=== PATIENT | female | born 1945 | race Caucasian/White ===

== ENCOUNTER 2018-05-12 12:47 | Outpatient (CLI) | payer MEDICARE | END 2018-05-12 12:48 | disposition home or self-care (01) | LOC: BICMAMMO 12:47 | PROVIDERS: ATTEND Family Medicine | DX: Z12.31 Encounter for screening mammogram for malignant neoplasm of breast (principal) | CPT/HCPCS: 77063; 77067 ==

== ENCOUNTER 2019-05-13 09:37 | Outpatient (CLI) | payer MEDICARE ==
--- NOTE | 2019-05-13 10:06 | BD ---
DEXA BONE DENSITY SCAN: Date: 05/13/2019 COMPARISON: 05/08/2017. HISTORY: Postmenopausal female undergoing screening for osteoporosis. FINDINGS: Lumbar Spine BMD (g/cm2) L1 0.770 T-Score -2.0 (previous -2.0) L2 0.764 T-Score -2.4 (previous -2.5) L3 0.861 T-Score -2.0 (previous -1.9) L4 0.794 T-Score -2.4 (previous -1.9) L1-L4 0.799 T-Score -2.3 (previous -2.1) Femoral Neck 0.612 T-Score -2.1 (previous -2.2) Total Femur 0.725 T-Score -1.8 (previous -1.5) Bone mineral density within the total proximal femur has decreased by 8.7% when compared to the prior exam. Bone mineral density within the total lumbar spine has decreased by 1.1% when compared to the prior exam. The FRAX-WHO fracture risk assessment tool reports a 10 year fracture risk of 13% for a major osteopo rotic fracture and 3.6% for hip fracture in an untreated patient. IMPRESSION: Lumbar spine and femoral neck osteopenia, correlating with an increased risk for fracture as detailed above. Transcribed Date/Time: 05/13/2019 11:07 AM
--- NOTE | 2019-05-13 15:08 | MMO ---
Bilateral MAMMO Bilat Screen [facility]. CLINICAL HISTORY: Patient is 73 years old and is seen for screening. The patient has no family history of breast cancer. The patient has no personal history of cancer. The patient has a history of right Excisional Biopsy - benign. VIEWS: The views performed were: bilateral craniocaudal with tomosynthesis and bilateral mediolateral oblique with tomosynthesis. FILMS COMPARED: The present examination has been compared to prior imaging studies performed at [facility] on 05/08/2017 and 05/12/2018, and at [facility] on 04/27/2010 and 05/20/2013. MAMMOGRAM FINDINGS: There are scattered fibroglandular densities. Finding 1: There is a post-surgical scar seen in the right breast. There are no suspicious masses, suspicious calcifications, or new areas of architectural distortion. IMPRESSION: THERE IS NO MAMMOGRAPHIC EVIDENCE OF MALIGNANCY. A ROUTINE FOLLOW-UP MAMMOGRAM IN 1 YEAR IS RECOMMENDED. THE RESULTS OF THIS EXAM WERE SENT TO THE PATIENT. ACR BI-RADS Category 2 - Benign finding MAMMOGRAPHY NOTE: 1. A negative mammogram report should not delay a biopsy if a dominant of clinically suspicious mass is present. 2. Approximately 10% to 15% of breast cancers are not detected by mammography. 3. Adenosis and dense breasts may obscure an underlying neoplasm. Reported by: SANTIAGO LOVING MD Electonically Signed: [id number]
== END 2019-05-13 09:38 | disposition home or self-care (01) ==
LOC: BICMAMMO 09:37
PROVIDERS: ATTEND Family Medicine
DX: Z12.31 Encounter for screening mammogram for malignant neoplasm of breast (principal); Z13.820 Encounter for screening for osteoporosis; Z91.89 Other specified personal risk factors, not elsewhere classified; M85.89 Other specified disorders of bone density and structure, multiple sites
CPT/HCPCS: 77063; 77067; 77080

== ENCOUNTER 2021-01-19 10:42 | Outpatient (CLI) | payer MEDICARE | END 2021-01-19 10:43 | disposition home or self-care (01) | LOC: BICMAMMO 10:42 | PROVIDERS: ATTEND Family Medicine | DX: Z12.31 Encounter for screening mammogram for malignant neoplasm of breast (principal); R79.89 Other specified abnormal findings of blood chemistry; Z91.89 Other specified personal risk factors, not elsewhere classified | CPT/HCPCS: 76705; 77063; 77067 ==

== ENCOUNTER 2021-01-31 08:37 | Outpatient (CLI) | payer MEDICARE | END 2021-01-31 08:38 | disposition home or self-care (01) | LOC: BICRAD 08:37 | PROVIDERS: ATTEND Family Medicine | DX: J18.9 Pneumonia, unspecified organism (principal) | CPT/HCPCS: 36415; 71046; 80053; 82150; 82728; 83540; 83550; 83690; 85025; 86664; 86665 ==

== ENCOUNTER 2021-02-03 10:52 | Outpatient (CLI) | payer MEDICARE ==
[~2021-02-03 10:52] MED LIST: Iopamidol 370 76% 100 ML VIAL ONE
== END 2021-02-03 10:53 | disposition home or self-care (01) ==
LOC: BICCT 10:52
PROVIDERS: ATTEND Family Medicine
DX: K76.89 Other specified diseases of liver (principal); K44.9 Diaphragmatic hernia without obstruction or gangrene
CPT/HCPCS: 74170; Q9967

== ENCOUNTER 2021-02-06 09:33 | Outpatient (CLI) | payer MEDICARE | END 2021-02-06 09:34 | disposition home or self-care (01) | LOC: BICRAD 09:33 | PROVIDERS: ATTEND Family Medicine | DX: J18.9 Pneumonia, unspecified organism (principal) | CPT/HCPCS: 71046 ==

== ENCOUNTER 2021-02-20 12:15 | Inpatient (IN) | payer MEDICARE ==
[~2021-02-20 12:15] MED LIST changes: -Iopamidol 370 76% 100 ML VIAL ONE; +Iopamidol-370 76% 500 ML 1 ML ONE
[2021-02-20 12:42] LABS: Hemoglobin 6.4 g/dL (12.0-16.0); Mean Corpuscular HGB CONC 33.1 g/dL (32.0-36.0); Mean Corpuscular Hemoglobin 31.4 pg (27.0-31.0); Mean Corpuscular Volume 94.7 fL (78.0-98.0); Mean Platelet Volume 9.3 fL (7.4-10.4); Platelet Count 231 thou/uL (130-400); RBC Distribution Width 18.3 % (11.5-14.5); Red Blood Cell (RBC) Count 2.04 mill/uL (4.20-5.40)
[2021-02-20 13:00] LABS: Bilirubin Negative (Negative); Blood, Urine Negative (Negative); Clarity Turbid (Clear); Glucose, Urine (Dipstick) 70 mg/dL (Negative); Ketone, Urine Negative (Negative); Leukocyte Negative Leu/uL (Negative); Nitrite Negative (Negative); Protein, Urine (Dipstick) 20 mg/dL (Neg-Trace); Specific Gravity, Urine 1.013 (1.002-1.036); Urobilinogen Normal mg/dL (Less than 2)
[2021-02-20] MEDS ORDERED: cefTRIAXone\\ROCEPHIN 2 GM VIAL ONE (13:02)
[2021-02-20 13:05] LABS: ALT (SGPT) 44 U/L (8-55); AST (SGOT) 81 U/L (5-34); Albumin 2.7 g/dL (3.4-4.8); Alkaline Phosphatase 331 U/L (40-110); Anion Gap 13 mmol/L (10-20); BUN (Urea Nitrogen) 10 mg/dL (9.8-20.1); Bilirubin, Total 0.8 mg/dL (0.2-1.2); Calc. Creatinine Clearance 0 mL/min (70-130); Calcium 8.5 mg/dL (7.8-10.44); Carbon Dioxide 23 mmol/L (23-31); Chloride 104 mmol/L (98-107); Globulin 2.4 g/dL (2.4-3.5); Glucose 175 mg/dL (83-110); Potassium 3.3 mmol/L (3.5-5.1); Protein, Total 5.1 g/dL (5.8-8.1); Sodium 137 mmol/L (136-145)
[2021-02-20 13:10] LABS: Anisocytosis SLIGHT = 6-15 cells (100X) (0-5/hpf); Band 16 % (5-11); Lymphocytes 11 % (21-51); MDiff Complete? YES; Monocytes 15 % (0-10); Neutrophil 58 % (42-75); Platelet Morphology Comment Appears Adequate; Polychromasia MODERATE = 3-4 cells (100X) (0-2/hpf)
[2021-02-20] MEDS ORDERED: Vancomycin 1 GM/200 ML BAG ONE (14:09)
[2021-02-20 14:14] LABS: SARS-CoV-2 NAA Rapid Test Not Detected (NotDetected)
[2021-02-20] MEDS ORDERED: Ibuprofen 800 MG TAB ONE (14:31)
[2021-02-20] MEDS ORDERED: Ondansetron ODT 4 MG TAB PO PRN (14:44)
[2021-02-20] MEDS ORDERED: Lactated Ringer's 1,000 ML IV SCH (15:15)
[2021-02-20 15:36] LABS: Lactic Acid 1.2 mmol/L (0.5-2.2)
[2021-02-20 15:44] LABS: Troponin I 0.027 ng/mL (< 0.028)
[2021-02-20] MEDS ORDERED: Cefepime 2 GM in Sodium Chloride 0.9% 100 ML IVPB SCH (17:00)
[2021-02-20] MEDS: Cefepime 2 GM in Sodium Chloride 0.9% 100 ML IVPB SCH (18:33)
[2021-02-20 19:01] LABS: Troponin I 0.016 ng/mL (< 0.028)
[2021-02-20] MEDS: Acetaminophen 325 MG TAB PO PRN (21:58)
[2021-02-21] MEDS: Cefepime 2 GM in Sodium Chloride 0.9% 100 ML IVPB SCH ×3 (00:27→16:33)
[2021-02-21 00:55] LABS: Hemoglobin 8.3 g/dL (12.0-16.0)
[2021-02-21 04:45] LABS: Reticulocyte Count 3.2 % (0.5-1.5)
[2021-02-21 05:03] LABS: Hemoglobin 9.2 g/dL (12.0-16.0); Lymphocytes 8 % (21-51); MDiff Complete? YES; Mean Corpuscular HGB CONC 32.6 g/dL (32.0-36.0); Mean Corpuscular Hemoglobin 29.7 pg (27.0-31.0); Mean Corpuscular Volume 91.1 fL (78.0-98.0); Mean Platelet Volume 9.5 fL (7.4-10.4); Metamyelocyte 1 % (0-0); Monocytes 9 % (0-10); Neutrophil 81 % (42-75); Platelet Count 181 thou/uL (130-400); Platelet Morphology Comment Appears Adequate; RBC Distribution Width 19.1 % (11.5-14.5); White Blood Cell (WBC) Count 7.5 thou/uL (4.8-10.8)
[2021-02-21 05:16] LABS: ALT (SGPT) 42 U/L (8-55); AST (SGOT) 79 U/L (5-34); Albumin 2.8 g/dL (3.4-4.8); Alkaline Phosphatase 328 U/L (40-110); Anion Gap 15 mmol/L (10-20); BUN (Urea Nitrogen) 9 mg/dL (9.8-20.1); Bilirubin, Total 0.9 mg/dL (0.2-1.2); Calc. Creatinine Clearance 87 mL/min (70-130); Calcium 8.5 mg/dL (7.8-10.44); Carbon Dioxide 19 mmol/L (23-31); Chloride 106 mmol/L (98-107); Gamma GT (GGT) 201 U/L (9-36); Globulin 2.4 g/dL (2.4-3.5); Glucose 103 mg/dL (83-110); Magnesium 1.8 mg/dL (1.6-2.6); Phosphorus 3.3 mg/dL (2.3-4.7); Potassium 3.8 mmol/L (3.5-5.1); Protein, Total 5.2 g/dL (5.8-8.1); Sodium 136 mmol/L (136-145)
[2021-02-21] MEDS: Acetaminophen 325 MG TAB PO PRN (06:09)
[2021-02-21] MEDS ORDERED: Ibuprofen 200 MG TAB PO PRN (08:20)
[2021-02-21] MEDS ORDERED: Pantoprazole 40 MG VIAL IVP SCH ×2 (09:00)
[2021-02-21] MEDS: Acetaminophen 325 MG TAB PO SCH ×4 (09:29→20:39)
[2021-02-21 11:07] LABS: Phosphorus 2.8 mg/dL (2.3-4.7); Uric Acid 3.2 mg/dL (2.6-6.0)
[2021-02-21] MEDS ORDERED: Lidocaine 2 gm/D5W 500 ml 0 ML ONE (11:49)
[2021-02-21] MEDS ORDERED: Lidocaine 1% (PF) 30 ML VIAL ONE (11:50)
[2021-02-21] MEDS ORDERED: Ibuprofen 200 MG TAB PO SCH (12:00)
[2021-02-21 13:02] LABS: Reticulocyte Count 3.4 % (0.5-1.5)
[2021-02-21] MEDS: Vancomycin HCl 1.25 GM in Sodium Chloride 0.9% 250 ML 250 ML IVPB SCH (14:04)
[2021-02-21] MEDS: diphenhydrAMINE 25 MG CAP PO PRN (17:16)
[2021-02-21] MEDS: diphenhydrAMINE 25 MG CAP PO SCH (20:38)
[2021-02-21] MEDS: Naproxen 500 MG TAB PO SCH (20:38)
[2021-02-22] MEDS: Cefepime 2 GM in Sodium Chloride 0.9% 100 ML IVPB SCH ×2 (01:04→08:53)
[2021-02-22] MEDS: Acetaminophen 325 MG TAB PO SCH ×6 (01:04→20:34)
[2021-02-22 07:21] LABS: Hemoglobin 9.4 g/dL (12.0-16.0); Mean Corpuscular HGB CONC 32.9 g/dL (32.0-36.0); Mean Corpuscular Hemoglobin 30.2 pg (27.0-31.0); Mean Corpuscular Volume 91.8 fL (78.0-98.0); Mean Platelet Volume 9.6 fL (7.4-10.4); Platelet Count 139 thou/uL (130-400); RBC Distribution Width 19.5 % (11.5-14.5); White Blood Cell (WBC) Count 5.1 thou/uL (4.8-10.8)
[2021-02-22 07:27] LABS: ALT (SGPT) 48 U/L (8-55); AST (SGOT) 89 U/L (5-34); Albumin 2.7 g/dL (3.4-4.8); Alkaline Phosphatase 356 U/L (40-110); Anion Gap 11 mmol/L (10-20); BUN (Urea Nitrogen) 12 mg/dL (9.8-20.1); Bilirubin, Total 1.2 mg/dL (0.2-1.2); Calc. Creatinine Clearance 85 mL/min (70-130); Calcium 9.7 mg/dL (7.8-10.44); Carbon Dioxide 25 mmol/L (23-31); Chloride 107 mmol/L (98-107); Globulin 2.6 g/dL (2.4-3.5); Glucose 104 mg/dL (83-110); Potassium 3.2 mmol/L (3.5-5.1); Protein, Total 5.3 g/dL (5.8-8.1); Sodium 140 mmol/L (136-145)
[2021-02-22 07:49] LABS: Band 29 % (5-11); Eosinophils 2 % (0-10); Lymphocytes 2 % (21-51); MDiff Complete? YES; Monocytes 13 % (0-10); Neutrophil 52 % (42-75); Platelet Morphology Comment Appears Adequate; Polychromasia SLIGHT = 2-3 cells (100X) (0-2/hpf); Reactive Lymphocytes 2 % (0-10)
[2021-02-22] MEDS: Naproxen 500 MG TAB PO SCH ×2 (08:54→20:33)
[2021-02-22] MEDS: Potassium Chloride 20 MEQ in Premix Bag 1 BAG IVPB SCH ×2 (09:40→12:11)
[2021-02-22] MEDS ORDERED: Furosemide 20 MG/2 ML VIAL SLOW IVP SCH (11:30)
[2021-02-22 13:25] LABS: Vancomycin, Trough 4.9 ug/mL
[2021-02-22] MEDS: Vancomycin HCl 1.25 GM in Sodium Chloride 0.9% 250 ML 250 ML IVPB SCH (14:37)
[2021-02-22] MEDS ORDERED: Vancomycin HCl 1.25 GM in Sodium Chloride 0.9% 250 ML 250 ML IVPB SCH (15:00)
[2021-02-22] MEDS ORDERED: VANCOMYCIN 1.25 GM/250 ML BAG 1.25 GM in Premix Bag 1 BAG IVPB SCH (15:00)
[2021-02-22] MEDS ORDERED: cefTRIAXone\\ROCEPHIN 1 GM in Sodium Chloride 0.9% 100 ML IVPB SCH (16:15)
[2021-02-22] MEDS: diphenhydrAMINE 25 MG CAP PO SCH (20:34)
[2021-02-22] MEDS ORDERED: Furosemide 40 MG/4 ML VIAL SLOW IVP SCH (22:30)
[2021-02-23] MEDS: Acetaminophen 325 MG TAB PO SCH ×6 (02:02→20:45)
[2021-02-23] MEDS ORDERED: CEFAZOLIN 1 GM VIAL ONE (07:29)
[2021-02-23] MEDS ORDERED: Sodium Chloride 0.9% 100 ML ONE (07:29)
[2021-02-23] MEDS ORDERED: Bupivacaine PF 0.5% 30 ML VIAL ONE (08:17)
[2021-02-23] MEDS ORDERED: Lidocaine 1% w/Epinephrine 1:100K 20 ML VIAL ONE (08:17)
[2021-02-23] MEDS ORDERED: Fentanyl 100 MCG/2 ML VIAL ONE (08:25)
[2021-02-23] MEDS ORDERED: Midazolam HCl 2 mg/2 ml Vial ONE (08:25)
[2021-02-23] MEDS ORDERED: Ibuprofen 600 MG TAB PO PRN (08:42)
[2021-02-23] MEDS ORDERED: traMADol HCl 50 MG TAB PO PRN (08:42)
[2021-02-23] MEDS ORDERED: Lidocaine 1% PF 5 ML VIAL ONE (08:54)
[2021-02-23] MEDS ORDERED: PROPOFOL 200 MG/20 ML VIAL ONE (08:55)
[2021-02-23] MEDS: Naproxen 500 MG TAB PO SCH ×2 (12:42→21:42)
[2021-02-23] MEDS: Allopurinol 300 MG TAB PO SCH (12:42)
[2021-02-23 13:26] LABS: Anisocytosis SLIGHT = 6-15 cells (100X) (0-5/hpf); Band 49 % (5-11); Eosinophils 1 % (0-10); Hemoglobin 8.2 g/dL (12.0-16.0); Hypochromia SLIGHT = 6-15 cells (100X) (0-5/hpf); Large Platelets SLIGHT; Lymphocytes 2 % (21-51); MDiff Complete? YES; Mean Corpuscular Volume 90.9 fL (78.0-98.0); Mean Platelet Volume 10.7 fL (7.4-10.4); Metamyelocyte 8 % (0-0); Monocytes 4 % (0-10); Myelocyte 2 % (0-0); Neutrophil 31 % (42-75); Platelet Count 115 thou/uL (130-400); Platelet Morphology Comment Appears Adequate; Poikilocytosis SLIGHT = 6-15 cells (100X) (0-5/hpf); RBC Distribution Width 19.3 % (11.5-14.5); Reactive Lymphocytes 3 % (0-10); Red Blood Cell (RBC) Count 2.75 mill/uL (4.20-5.40); White Blood Cell (WBC) Count 4.9 thou/uL (4.8-10.8)
[2021-02-23] MEDS: diphenhydrAMINE 25 MG CAP PO SCH (20:45)
[2021-02-23] MEDS ORDERED: Furosemide 40 MG/4 ML VIAL SLOW IVP SCH (21:00)
[2021-02-24] MEDS: Acetaminophen 325 MG TAB PO SCH ×6 (01:45→21:15)
[2021-02-24] MEDS ORDERED: Furosemide 20 MG/2 ML VIAL SLOW IVP SCH (06:00)
[2021-02-24 09:03] LABS: Band 15 % (5-11); Eosinophils 1 % (0-10); Hemoglobin 8.1 g/dL (12.0-16.0); Hypochromia SLIGHT = 6-15 cells (100X) (0-5/hpf); Lymphocytes 3 % (21-51); MDiff Complete? YES; Mean Corpuscular HGB CONC 31.6 g/dL (32.0-36.0); Mean Corpuscular Hemoglobin 28.9 pg (27.0-31.0); Mean Corpuscular Volume 91.8 fL (78.0-98.0); Mean Platelet Volume 9.9 fL (7.4-10.4); Monocytes 14 % (0-10); Neutrophil 66 % (42-75); Platelet Count 134 thou/uL (130-400); Platelet Morphology Comment Appears Adequate; RBC Distribution Width 19.4 % (11.5-14.5); Reactive Lymphocytes 1 % (0-10); Red Blood Cell (RBC) Count 2.81 mill/uL (4.20-5.40); White Blood Cell (WBC) Count 4.3 thou/uL (4.8-10.8)
[2021-02-24] MEDS: Naproxen 500 MG TAB PO SCH ×2 (09:57→21:15)
[2021-02-24] MEDS: Allopurinol 300 MG TAB PO SCH (09:57)
[2021-02-24] MEDS ORDERED: Potassium Chloride 20 MEQ TAB PO SCH (11:15)
[2021-02-24 11:42] LABS: Anion Gap 9 mmol/L (10-20); BUN (Urea Nitrogen) 23 mg/dL (9.8-20.1); Calc. Creatinine Clearance 81 mL/min (70-130); Calcium 10.9 mg/dL (7.8-10.44); Carbon Dioxide 31 mmol/L (23-31); Chloride 103 mmol/L (98-107); Glucose 155 mg/dL (83-110); Potassium 3.6 mmol/L (3.5-5.1); Sodium 139 mmol/L (136-145)
[2021-02-24] MEDS: diphenhydrAMINE 25 MG CAP PO SCH (21:15)
[2021-02-24] MEDS: Calcium Carbonate 500 MG ChewTAB PO PRN (22:57)
[2021-02-25] MEDS: Acetaminophen 325 MG TAB PO SCH ×6 (00:16→20:32)
[2021-02-25 06:39] LABS: Anion Gap 10 mmol/L (10-20); BUN (Urea Nitrogen) 23 mg/dL (9.8-20.1); Calc. Creatinine Clearance 80 mL/min (70-130); Carbon Dioxide 31 mmol/L (23-31); Chloride 103 mmol/L (98-107); Glucose 103 mg/dL (83-110); Sodium 140 mmol/L (136-145)
[2021-02-25 06:51] LABS: Calcium 12.1 mg/dL (7.8-10.44)
[2021-02-25 08:25] LABS: Hemoglobin 7.4 g/dL (12.0-16.0); Mean Corpuscular HGB CONC 32.9 g/dL (32.0-36.0); Mean Corpuscular Hemoglobin 30.1 pg (27.0-31.0); Mean Corpuscular Volume 91.3 fL (78.0-98.0); Mean Platelet Volume 9.8 fL (7.4-10.4); Platelet Count 123 thou/uL (130-400); RBC Distribution Width 19.2 % (11.5-14.5); Red Blood Cell (RBC) Count 2.44 mill/uL (4.20-5.40); White Blood Cell (WBC) Count 5.2 thou/uL (4.8-10.8)
[2021-02-25] MEDS: Allopurinol 300 MG TAB PO SCH (08:41)
[2021-02-25] MEDS: Naproxen 500 MG TAB PO SCH ×2 (08:41→20:32)
[2021-02-25 08:43] LABS: Band 17 % (5-11); Eosinophils 1 % (0-10); Hypochromia SLIGHT = 6-15 cells (100X) (0-5/hpf); Lymphocytes 7 % (21-51); MDiff Complete? YES; Monocytes 5 % (0-10); Neutrophil 70 % (42-75); Platelet Morphology Comment Appears Adequate
[2021-02-25] MEDS: diphenhydrAMINE 25 MG CAP PO SCH (20:32)
[2021-02-25] MEDS: Calcium Carbonate 500 MG ChewTAB PO PRN (20:45)
[2021-02-26] MEDS: Acetaminophen 325 MG TAB PO SCH ×6 (00:02→20:31)
[2021-02-26] MEDS: Allopurinol 300 MG TAB PO SCH (08:43)
[2021-02-26] MEDS: Naproxen 500 MG TAB PO SCH ×2 (08:43→20:31)
[2021-02-26 17:45] LABS: Hemoglobin 7.8 g/dL (12.0-16.0)
[2021-02-26] MEDS: diphenhydrAMINE 25 MG CAP PO SCH (20:34)
[2021-02-27 00:08] LABS: Anion Gap 11 mmol/L (10-20); BUN (Urea Nitrogen) 20 mg/dL (9.8-20.1); Calc. Creatinine Clearance 76 mL/min (70-130); Carbon Dioxide 31 mmol/L (23-31); Chloride 102 mmol/L (98-107); Glucose 102 mg/dL (83-110); Potassium 4.5 mmol/L (3.5-5.1); Sodium 139 mmol/L (136-145)
[2021-02-27 00:11] LABS: Calcium 12.7 mg/dL (7.8-10.44)
[2021-02-27] MEDS ORDERED: Sodium Chloride 0.9% 500 ML IV SCH ×2 (00:45→04:00)
[2021-02-27] MEDS: Acetaminophen 325 MG TAB PO SCH ×6 (01:11→22:14)
[2021-02-27] MEDS: diphenhydrAMINE 25 MG CAP PO PRN (03:44)
[2021-02-27 04:21] LABS: Anion Gap 10 mmol/L (10-20); BUN (Urea Nitrogen) 18 mg/dL (9.8-20.1); Calc. Creatinine Clearance 80 mL/min (70-130); Carbon Dioxide 31 mmol/L (23-31); Chloride 104 mmol/L (98-107); Glucose 100 mg/dL (83-110); Potassium 4.5 mmol/L (3.5-5.1); Sodium 140 mmol/L (136-145)
[2021-02-27 04:23] LABS: Calcium 12.4 mg/dL (7.8-10.44); Critical Call Chemistry DECREASING
[2021-02-27 05:47] LABS: Hemoglobin 7.6 g/dL (12.0-16.0); Mean Corpuscular HGB CONC 32.7 g/dL (32.0-36.0); Mean Corpuscular Hemoglobin 29.9 pg (27.0-31.0); Mean Corpuscular Volume 91.5 fL (78.0-98.0); Mean Platelet Volume 9.6 fL (7.4-10.4); Platelet Count 126 thou/uL (130-400); RBC Distribution Width 17.9 % (11.5-14.5); Red Blood Cell (RBC) Count 2.54 mill/uL (4.20-5.40); White Blood Cell (WBC) Count 5.6 thou/uL (4.8-10.8)
[2021-02-27 06:14] LABS: Band 20 % (5-11); Eosinophils 3 % (0-10); Lymphocytes 2 % (21-51); MDiff Complete? YES; Monocytes 12 % (0-10); Myelocyte 2 % (0-0); Neutrophil 60 % (42-75); Reactive Lymphocytes 1 % (0-10)
[2021-02-27] MEDS ORDERED: Lactated Ringer's 250 ML IV ONE (07:49)
[2021-02-27] MEDS ORDERED: Lactated Ringer's 1,000 ML IV SCH ×2 (08:00→09:10)
[2021-02-27] MEDS: Allopurinol 300 MG TAB PO SCH (08:40)
[2021-02-27] MEDS: Naproxen 500 MG TAB PO SCH ×2 (08:50→21:28)
[2021-02-27 11:50] LABS: Bacteria/HPF None Seen HPF (None Seen); Bilirubin Negative (Negative); Blood, Urine Negative (Negative); Clarity Turbid (Clear); Glucose, Urine (Dipstick) Normal (Negative); Ketone, Urine Negative (Negative); Leukocyte Negative Leu/uL (Negative); Nitrite Negative (Negative); Protein, Urine (Dipstick) 20 mg/dL (Neg-Trace); RBC/HPF 0-3 HPF (0-3); Specific Gravity, Urine 1.017 (1.002-1.036); Squamous Epithelial 0-3 HPF (0-3); Urobilinogen Normal mg/dL (Less than 2); WBC/HPF 0-3 HPF (0-3); pH, Urine 6.5 (5.0-9.0)
[2021-02-27 11:51] LABS: Urine Culture Reflex No No
[2021-02-27] MEDS: Enoxaparin Sodium 40 MG/0.4 ML SYRINGE SC SCH (12:08)
[2021-02-27] MEDS ORDERED: Calcitonin,Salmon,Synthetic 200 UNITS/ML MDV SC SCH (14:15)
[2021-02-27] MEDS ORDERED: Furosemide 20 MG/2 ML VIAL SLOW IVP SCH ×2 (14:30→18:00)
[2021-02-27] MEDS ORDERED: Zoledronic Acid 4 MG in Sodium Chloride 0.9% 100 ML IVPB SCH (14:30)
[2021-02-27] MEDS: Calcitonin,Salmon,Synthetic 200 UNITS/ML MDV SC SCH (17:45)
[2021-02-27] MEDS: Lactated Ringer's 1,000 ML IV SCH (17:46)
[2021-02-27] MEDS: Ondansetron PF 4 MG/2 ML Vial IVP PRN (20:18)
[2021-02-27] MEDS: diphenhydrAMINE 25 MG CAP PO SCH (22:14)
[2021-02-27 23:48] LABS: ALT (SGPT) 72 U/L (8-55); AST (SGOT) 128 U/L (5-34); Albumin 2.3 g/dL (3.4-4.8); Alkaline Phosphatase 574 U/L (40-110); BUN (Urea Nitrogen) 15 mg/dL (9.8-20.1); Bilirubin, Total 1.4 mg/dL (0.2-1.2); Calc. Creatinine Clearance 82 mL/min (70-130); Calcium 11.9 mg/dL (7.8-10.44); Carbon Dioxide 32 mmol/L (23-31); Globulin 2.4 g/dL (2.4-3.5); Glucose 116 mg/dL (83-110); Protein, Total 4.7 g/dL (5.8-8.1)
[2021-02-28 00:57] LABS: Chloride 103 mmol/L (98-107); Potassium 4.4 mmol/L (3.5-5.1); Sodium 141 mmol/L (136-145)
[2021-02-28 01:46] LABS: Anion Gap 10 mmol/L (10-20)
[2021-02-28] MEDS: Acetaminophen 325 MG TAB PO SCH ×4 (03:31→17:01)
[2021-02-28] MEDS: Calcitonin,Salmon,Synthetic 200 UNITS/ML MDV SC SCH ×2 (03:32→16:07)
[2021-02-28 05:05] LABS: Band 31 % (5-11); Hemoglobin 7.4 g/dL (12.0-16.0); Lymphocytes 5 % (21-51); MDiff Complete? YES; Mean Corpuscular HGB CONC 32.5 g/dL (32.0-36.0); Mean Corpuscular Hemoglobin 29.9 pg (27.0-31.0); Mean Corpuscular Volume 92.1 fL (78.0-98.0); Mean Platelet Volume 9.9 fL (7.4-10.4); Monocytes 13 % (0-10); Neutrophil 51 % (42-75); Platelet Count 136 thou/uL (130-400); RBC Distribution Width 18.2 % (11.5-14.5); Red Blood Cell (RBC) Count 2.46 mill/uL (4.20-5.40); White Blood Cell (WBC) Count 6.4 thou/uL (4.8-10.8)
[2021-02-28 05:09] LABS: ALT (SGPT) 69 U/L (8-55); AST (SGOT) 128 U/L (5-34); Albumin 2.3 g/dL (3.4-4.8); Alkaline Phosphatase 527 U/L (40-110); Anion Gap 11 mmol/L (10-20); BUN (Urea Nitrogen) 16 mg/dL (9.8-20.1); Bilirubin, Total 1.3 mg/dL (0.2-1.2); Calc. Creatinine Clearance 81 mL/min (70-130); Calcium 11.5 mg/dL (7.8-10.44); Carbon Dioxide 32 mmol/L (23-31); Chloride 101 mmol/L (98-107); Globulin 2.2 g/dL (2.4-3.5); Glucose 106 mg/dL (83-110); Potassium 4.3 mmol/L (3.5-5.1); Protein, Total 4.5 g/dL (5.8-8.1); Sodium 140 mmol/L (136-145)
[2021-02-28] MEDS: Lactated Ringer's 1,000 ML IV SCH ×2 (06:29→17:26)
[2021-02-28] MEDS ORDERED: Iopamidol 370 76% 100 ML VIAL ONE (08:53)
[2021-02-28] MEDS: Naproxen 500 MG TAB PO SCH ×2 (09:00→20:55)
[2021-02-28] MEDS: Allopurinol 300 MG TAB PO SCH (09:03)
[2021-02-28] MEDS: Enoxaparin Sodium 40 MG/0.4 ML SYRINGE SC SCH (09:05)
[2021-02-28] MEDS ORDERED: Sodium Chloride 0.9% 1,000 ML IV SCH (09:30)
[2021-02-28] MEDS ORDERED: Furosemide 20 MG/2 ML VIAL SLOW IVP SCH (12:00)
[2021-02-28] MEDS ORDERED: Methotrexate Sodium/PF 12.5 MG in Sodium Chloride 0.9% 10 ML IV SCH (15:45)
[2021-02-28] MEDS ORDERED: Furosemide 40 MG/4 ML VIAL ONE (16:14)
[2021-02-28 16:32] LABS: Actual Bicarbonate (HCO3a) 30.7 mEq/L (22-28); Base Excess (BEa) 6.2 mEq/L (-2.0 to +3.0); CO2 Tension 44.9 mmHg (35.0-45.0); Carboxyhemoglobin (COHb) 1.3 gm% (0.0-3.0); Hemoglobin (Hb) 7.4 g/dL (12.0-16.0); pH, Arterial 7.45 (7.35-7.45)
[2021-02-28 16:33] LABS: Potassium - ABG Lab 4.38 mmol/L (3.70-5.30)
[2021-02-28 16:34] LABS: ALV-art Gradient 563.875 mmHg (0-20); Analyzer IN Cardio OR; Puncture Site RRA
[2021-02-28] MEDS ORDERED: Acetaminophen 650 MG Suppository PR PRN (16:55)
[2021-02-28] MEDS: Dexamethasone Sod Phosphate 4 MG in Sodium Chloride 0.9% 50 ML IVPB SCH ×2 (17:11→23:48)
[2021-02-28] MEDS ORDERED: Lactated Ringer's 500 ML IV SCH (17:15)
[2021-02-28] MEDS ORDERED: Sodium Chloride 0.9% 500 ML IV SCH (17:30)
[2021-02-28 18:19] LABS: Fluid, Triglycerides 29 mg/dL (Not Available); Pleural Fluid, Amylase Less than 30 U/L (Not Available); Pleural Fluid, Glucose 89 mg/dL; Pleural Fluid, LDH 438 U/L (Not Available); Pleural Fluid, Protein 1.7 g/dL
[2021-02-28 18:46] LABS: RBC Count-Automated (BF) 352 /cu.mm; WBC/Nucleated-Auto (BF) 41 uL
[2021-02-28 19:33] LABS: Body Fluid Source Thoracentesis Fluid; Clarity Hazy (Clear); Tube # EDTA
[2021-02-28 19:34] LABS: BF Color Yellow
[2021-02-28 19:36] LABS: BF Segmented Neutrophils 2 %; Cell Count Non Hematic 57 %; Lymphocytes 39 %
[2021-02-28] MEDS: diphenhydrAMINE 25 MG CAP PO SCH (20:54)
[2021-02-28] MEDS: MEROPENEM 1 GM/50 ML 1 GM in Premix Bag 1 BAG IVPB SCH (22:11)
[2021-02-28] MEDS ORDERED: Albumin 5% 0 ML ONE (22:33)
[2021-02-28] MEDS ORDERED: Albumin 25% 25 GM/100 ML BOT IVPB SCH (23:00)
[2021-02-28] MEDS ORDERED: Norepinephrine 8 MG/0.9% NS 250 ML ONE (23:06)
[2021-02-28] MEDS: Norepinephrine 8 MG/0.9% NS 250 ML IVPB SCH (23:20)
[2021-03-01] MEDS: Lactated Ringer's 1,000 ML IV SCH (03:25)
[2021-03-01] MEDS: Calcitonin,Salmon,Synthetic 200 UNITS/ML MDV SC SCH (03:26)
[2021-03-01] MEDS: Dexamethasone Sod Phosphate 4 MG in Sodium Chloride 0.9% 50 ML IVPB SCH ×4 (05:10→23:40)
[2021-03-01] MEDS: MEROPENEM 1 GM/50 ML 1 GM in Premix Bag 1 BAG IVPB SCH ×3 (05:58→21:16)
[2021-03-01 07:02] LABS: Hemoglobin 6.5 g/dL (12.0-16.0); Mean Corpuscular HGB CONC 31.1 g/dL (32.0-36.0); Mean Corpuscular Hemoglobin 28.7 pg (27.0-31.0); Mean Corpuscular Volume 92.4 fL (78.0-98.0); Red Blood Cell (RBC) Count 2.27 mill/uL (4.20-5.40); White Blood Cell (WBC) Count 13.9 thou/uL (4.8-10.8)
[2021-03-01 07:03] LABS: Mean Platelet Volume 10.4 fL (7.4-10.4); Platelet Count 169 thou/uL (130-400); RBC Distribution Width 18.6 % (11.5-14.5)
[2021-03-01 08:01] LABS: ALT (SGPT) 62 U/L (8-55); AST (SGOT) 129 U/L (5-34); Albumin 2.5 g/dL (3.4-4.8); Alkaline Phosphatase 421 U/L (40-110); Anion Gap 13 mmol/L (10-20); BUN (Urea Nitrogen) 24 mg/dL (9.8-20.1); Bilirubin, Total 1.3 mg/dL (0.2-1.2); Calc. Creatinine Clearance 74 mL/min (70-130); Calcium 10.2 mg/dL (7.8-10.44); Carbon Dioxide 29 mmol/L (23-31); Chloride 104 mmol/L (98-107); Globulin 1.9 g/dL (2.4-3.5); Glucose 142 mg/dL (83-110); Potassium 4.7 mmol/L (3.5-5.1); Protein, Total 4.4 g/dL (5.8-8.1); Sodium 141 mmol/L (136-145)
[2021-03-01 08:10] LABS: Band 41 % (5-11); Lymphocytes 6 % (21-51); MDiff Complete? YES; Monocytes 3 % (0-10); Myelocyte 1 % (0-0); Neutrophil 48 % (42-75); Platelet Morphology Comment Appears Adequate; Polychromasia SLIGHT = 2-3 cells (100X) (0-2/hpf); Reactive Lymphocytes 1 % (0-10)
[2021-03-01] MEDS ORDERED: Albumin 25% 25 GM/100 ML BOT IVPB SCH (08:35)
[2021-03-01] MEDS ORDERED: diphenhydrAMINE 25 MG in Sodium Chloride 0.9% 50 ML IVPB PRN (08:44)
[2021-03-01] MEDS ORDERED: PALONOSETRON HCL 0.05 MG/ML 5 ML VIAL IVP SCH (08:45)
[2021-03-01] MEDS ORDERED: predniSONE 50 MG TAB PO SCH (09:00)
[2021-03-01] MEDS ORDERED: Cyclophosphamide 1 GM in Sodium Chloride 0.9% 250 ML 250 ML IVPB SCH (09:00)
[2021-03-01] MEDS ORDERED: SODIUM CHLORIDE 0.9% IVPB SCH (09:00)
[2021-03-01] MEDS ORDERED: vinCRIStine Sulfate 2 MG in Sodium Chloride 0.9% 50 ML IVPB SCH (09:00)
[2021-03-01] MEDS ORDERED: DOXORUBICIN IVPB SCH (09:00)
[2021-03-01 09:39] LABS: Phosphorus 2.9 mg/dL (2.3-4.7); Uric Acid 3.7 mg/dL (2.6-6.0)
[2021-03-01] MEDS: Sodium Chloride 0.9% 1,000 ML IV SCH (10:07)
[2021-03-01] MEDS: Allopurinol 300 MG TAB PO SCH (10:59)
[2021-03-01] MEDS: Enoxaparin Sodium 40 MG/0.4 ML SYRINGE SC SCH (10:59)
[2021-03-01] MEDS: Naproxen 500 MG TAB PO SCH ×2 (12:12→21:16)
[2021-03-01] MEDS: Norepinephrine 8 MG/0.9% NS 250 ML IVPB SCH (15:31)
[2021-03-01] MEDS: diphenhydrAMINE 25 MG CAP PO SCH (21:16)
[2021-03-01] MEDS: Dexamethasone Sod Phosphate 20 MG in Sodium Chloride 0.9% 50 ML IVPB SCH (23:31)
[2021-03-02] MEDS: Sodium Chloride 0.9% 1,000 ML IV SCH ×3 (03:32→15:59)
[2021-03-02] MEDS: Dexamethasone Sod Phosphate 20 MG in Sodium Chloride 0.9% 50 ML IVPB SCH (04:36)
[2021-03-02 04:44] LABS: ALT (SGPT) 54 U/L (8-55); AST (SGOT) 102 U/L (5-34); Albumin 2.5 g/dL (3.4-4.8); Alkaline Phosphatase 364 U/L (40-110); Anion Gap 12 mmol/L (10-20); BUN (Urea Nitrogen) 28 mg/dL (9.8-20.1); Bilirubin, Total 1.2 mg/dL (0.2-1.2); Calc. Creatinine Clearance 80 mL/min (70-130); Calcium 9.2 mg/dL (7.8-10.44); Carbon Dioxide 27 mmol/L (23-31); Chloride 108 mmol/L (98-107); Globulin 1.8 g/dL (2.4-3.5); Glucose 147 mg/dL (83-110); Potassium 4.3 mmol/L (3.5-5.1); Protein, Total 4.3 g/dL (5.8-8.1); Sodium 143 mmol/L (136-145); Uric Acid 3.2 mg/dL (2.6-6.0)
[2021-03-02] MEDS: Dexamethasone Sod Phosphate 4 MG in Sodium Chloride 0.9% 50 ML IVPB SCH (04:45)
[2021-03-02 05:13] LABS: Hemoglobin 8.8 g/dL (12.0-16.0); Mean Corpuscular HGB CONC 32.5 g/dL (32.0-36.0); Mean Corpuscular Hemoglobin 30.3 pg (27.0-31.0); Mean Corpuscular Volume 93.3 fL (78.0-98.0); Mean Platelet Volume 10.4 fL (7.4-10.4); Platelet Count 121 thou/uL (130-400); RBC Distribution Width 16.6 % (11.5-14.5); White Blood Cell (WBC) Count 7.7 thou/uL (4.8-10.8)
[2021-03-02] MEDS: MEROPENEM 1 GM/50 ML 1 GM in Premix Bag 1 BAG IVPB SCH ×3 (05:34→21:32)
[2021-03-02 05:36] LABS: Band 36 % (5-11); Lymphocytes 2 % (21-51); MDiff Complete? YES; Monocytes 6 % (0-10); Neutrophil 56 % (42-75)
[2021-03-02] MEDS: Naproxen 500 MG TAB PO SCH ×2 (08:19→21:30)
[2021-03-02] MEDS: Allopurinol 300 MG TAB PO SCH (08:20)
[2021-03-02] MEDS: Enoxaparin Sodium 40 MG/0.4 ML SYRINGE SC SCH (08:20)
[2021-03-02] MEDS ORDERED: Albumin 25% 25 GM/100 ML BOT IVPB ONE (08:52)
[2021-03-02] MEDS ORDERED: PEGFILGRASTIM-JMDB 6 MG/0.6 ML SYRINGE SQ SCH (09:00)
[2021-03-02] MEDS ORDERED: Aluminum & Magnesium Hydroxide 60 ML, Lidocaine 2% Viscous Solution 30 ML, diphenhydrAM... SSW PRN (10:11)
[2021-03-02 11:34] VITALS: BMI 25.6
[2021-03-02] MEDS ORDERED: SODIUM CHLORIDE 0.9% IVPB SCH (13:15)
[2021-03-02] MEDS ORDERED: RITUXIMAB ABBS IVPB SCH (13:15)
[2021-03-02] MEDS: diphenhydrAMINE 25 MG CAP PO SCH (21:30)
[2021-03-03] MEDS: Sodium Chloride 0.9% 1,000 ML IV SCH ×2 (02:30→20:27)
[2021-03-03 04:13] LABS: ALT (SGPT) 39 U/L (8-55); AST (SGOT) 61 U/L (5-34); Albumin 2.5 g/dL (3.4-4.8); Alkaline Phosphatase 368 U/L (40-110); Anion Gap 9 mmol/L (10-20); BUN (Urea Nitrogen) 32 mg/dL (9.8-20.1); Bilirubin, Total 0.7 mg/dL (0.2-1.2); Calc. Creatinine Clearance 83 mL/min (70-130); Calcium 9.3 mg/dL (7.8-10.44); Carbon Dioxide 28 mmol/L (23-31); Chloride 109 mmol/L (98-107); Globulin 1.6 g/dL (2.4-3.5); Glucose 139 mg/dL (83-110); Potassium 4.3 mmol/L (3.5-5.1); Protein, Total 4.1 g/dL (5.8-8.1); Sodium 142 mmol/L (136-145); Uric Acid 3.4 mg/dL (2.6-6.0)
[2021-03-03 04:16] LABS: Band 54 % (5-11); Eosinophils 1 % (0-10); Hemoglobin 8.8 g/dL (12.0-16.0); Hypochromia SLIGHT = 6-15 cells (100X) (0-5/hpf); MDiff Complete? YES; Mean Corpuscular HGB CONC 34.2 g/dL (32.0-36.0); Mean Corpuscular Hemoglobin 31.2 pg (27.0-31.0); Mean Corpuscular Volume 91.3 fL (78.0-98.0); Mean Platelet Volume 10.7 fL (7.4-10.4); Monocytes 5 % (0-10); Neutrophil 40 % (42-75); Platelet Count 98 thou/uL (130-400); Platelet Morphology Comment Appears Decreased; RBC Distribution Width 16.1 % (11.5-14.5); Red Blood Cell (RBC) Count 2.82 mill/uL (4.20-5.40); White Blood Cell (WBC) Count 12.5 thou/uL (4.8-10.8)
[2021-03-03] MEDS: MEROPENEM 1 GM/50 ML 1 GM in Premix Bag 1 BAG IVPB SCH ×3 (06:10→21:21)
[2021-03-03] MEDS ORDERED: RITUXIMAB ABBS IVPB SCH ×2 (08:45)
[2021-03-03] MEDS ORDERED: SODIUM CHLORIDE 0.9% IVPB SCH ×2 (08:45)
[2021-03-03] MEDS: Enoxaparin Sodium 40 MG/0.4 ML SYRINGE SC SCH ×2 (09:00→10:06)
[2021-03-03] MEDS: Allopurinol 300 MG TAB PO SCH (09:01)
[2021-03-03] MEDS: Naproxen 500 MG TAB PO SCH ×2 (09:01→20:29)
[2021-03-03] MEDS: Acetaminophen 500 MG TAB PO PRN (10:06)
[2021-03-03] MEDS: diphenhydrAMINE 25 MG CAP PO SCH (20:32)
[2021-03-04] MEDS: Acetaminophen 500 MG TAB PO PRN (00:06)
[2021-03-04] MEDS: diphenhydrAMINE 25 MG CAP PO PRN (00:06)
[2021-03-04] MEDS: Ondansetron PF 4 MG/2 ML Vial IVP PRN (00:47)
[2021-03-04] MEDS: Sodium Chloride 0.9% 1,000 ML IV SCH ×2 (05:18→16:36)
[2021-03-04] MEDS: MEROPENEM 1 GM/50 ML 1 GM in Premix Bag 1 BAG IVPB SCH ×3 (05:19→21:44)
[2021-03-04 05:38] LABS: Hemoglobin 9.2 g/dL (12.0-16.0); Mean Corpuscular HGB CONC 32.7 g/dL (32.0-36.0); Mean Corpuscular Hemoglobin 30.1 pg (27.0-31.0); Mean Platelet Volume 10.8 fL (7.4-10.4); Platelet Count 116 thou/uL (130-400); RBC Distribution Width 16.8 % (11.5-14.5); Red Blood Cell (RBC) Count 3.05 mill/uL (4.20-5.40)
[2021-03-04 05:57] LABS: ALT (SGPT) 33 U/L (8-55); AST (SGOT) 45 U/L (5-34); Albumin 2.4 g/dL (3.4-4.8); Alkaline Phosphatase 367 U/L (40-110); Anion Gap 11 mmol/L (10-20); BUN (Urea Nitrogen) 32 mg/dL (9.8-20.1); Bilirubin, Total 0.5 mg/dL (0.2-1.2); Calc. Creatinine Clearance 87 mL/min (70-130); Calcium 8.4 mg/dL (7.8-10.44); Carbon Dioxide 25 mmol/L (23-31); Chloride 109 mmol/L (98-107); Globulin 1.7 g/dL (2.4-3.5); Glucose 116 mg/dL (83-110); Potassium 4.8 mmol/L (3.5-5.1); Protein, Total 4.1 g/dL (5.8-8.1); Sodium 140 mmol/L (136-145); Uric Acid 3.3 mg/dL (2.6-6.0)
[2021-03-04 06:00] LABS: Band 33 % (5-11); MDiff Complete? YES; Monocytes 1 % (0-10); Neutrophil 66 % (42-75); White Blood Cell (WBC) Count 23.1 thou/uL (4.8-10.8)
[2021-03-04] MEDS: Enoxaparin Sodium 40 MG/0.4 ML SYRINGE SC SCH (09:08)
[2021-03-04] MEDS: Allopurinol 300 MG TAB PO SCH (09:08)
[2021-03-04] MEDS: Naproxen 500 MG TAB PO SCH ×2 (09:09→21:46)
[2021-03-04] MEDS ORDERED: Calcium Carbonate 500 MG ChewTAB PO PRN (10:26)
[2021-03-04] MEDS ORDERED: Furosemide 20 MG/2 ML VIAL SLOW IVP SCH (11:30)
[2021-03-04] MEDS ORDERED: Furosemide 40 MG/4 ML VIAL SLOW IVP SCH (14:45)
[2021-03-04] MEDS ORDERED: Potassium Bicarbonate/Cit Ac 20 MEQ TAB PO SCH (18:00)
[2021-03-04] MEDS: diphenhydrAMINE 25 MG CAP PO SCH (21:48)
[2021-03-05] MEDS ORDERED: Bisacodyl 5 MG TAB PO PRN (03:10)
[2021-03-05] MEDS ORDERED: hydrOXYzine 25 MG TAB PO SCH (03:30)
[2021-03-05] MEDS: Sodium Chloride 0.9% 1,000 ML IV SCH (03:32)
[2021-03-05] MEDS: guaiFENesin 200 MG TAB PO PRN ×2 (03:47→09:20)
[2021-03-05] MEDS: MEROPENEM 1 GM/50 ML 1 GM in Premix Bag 1 BAG IVPB SCH (05:49)
[2021-03-05 06:28] LABS: Phosphorus 2.6 mg/dL (2.3-4.7)
[2021-03-05 06:31] LABS: ALT (SGPT) 34 U/L (8-55); AST (SGOT) 45 U/L (5-34); Albumin 2.2 g/dL (3.4-4.8); Alkaline Phosphatase 408 U/L (40-110); Anion Gap 10 mmol/L (10-20); BUN (Urea Nitrogen) 25 mg/dL (9.8-20.1); Bilirubin, Total 0.5 mg/dL (0.2-1.2); Calc. Creatinine Clearance 102 mL/min (70-130); Calcium 8.6 mg/dL (7.8-10.44); Carbon Dioxide 27 mmol/L (23-31); Chloride 107 mmol/L (98-107); Globulin 1.8 g/dL (2.4-3.5); Glucose 85 mg/dL (83-110); Potassium 4.6 mmol/L (3.5-5.1); Sodium 139 mmol/L (136-145)
[2021-03-05 06:32] LABS: Band 10 % (5-11); Hemoglobin 9.6 g/dL (12.0-16.0); Hypochromia SLIGHT = 6-15 cells (100X) (0-5/hpf); MDiff Complete? YES; Mean Corpuscular HGB CONC 33.1 g/dL (32.0-36.0); Mean Corpuscular Hemoglobin 30.4 pg (27.0-31.0); Mean Platelet Volume 11.2 fL (7.4-10.4); Monocytes 2 % (0-10); Neutrophil 88 % (42-75); Platelet Count 109 thou/uL (130-400); Platelet Morphology Comment Appears Adequate; RBC Distribution Width 16.4 % (11.5-14.5); Red Blood Cell (RBC) Count 3.16 mill/uL (4.20-5.40); White Blood Cell (WBC) Count 10.2 thou/uL (4.8-10.8)
[2021-03-05] MEDS ORDERED: Potassium Bicarbonate/Cit Ac 20 MEQ TAB PO SCH (08:00)
[2021-03-05] MEDS ORDERED: Furosemide 20 MG/2 ML VIAL SLOW IVP SCH (08:30)
[2021-03-05] MEDS: Naproxen 500 MG TAB PO SCH ×2 (09:07→19:58)
[2021-03-05] MEDS: Allopurinol 300 MG TAB PO SCH (09:07)
[2021-03-05] MEDS: Polyethylene Glycol 3350 17 GM Packet PO SCH (09:09)
[2021-03-05] MEDS: Enoxaparin Sodium 40 MG/0.4 ML SYRINGE SC SCH (09:15)
[2021-03-05] MEDS ORDERED: traMADol HCl 50 MG TAB PO PRN (11:28)
[2021-03-05] MEDS: Ondansetron PF 4 MG/2 ML Vial IVP PRN (13:59)
[2021-03-05] MEDS: diphenhydrAMINE 25 MG CAP PO SCH (19:58)
[2021-03-05] MEDS ORDERED: Preparation H HC 1% Cream 26 GM TUBE TOP SCH (21:00)
[2021-03-05] MEDS ORDERED: Melatonin 3 MG TAB PO PRN (21:05)
[2021-03-05] MEDS ORDERED: Preparation H Suppository PR PRN (21:26)
[2021-03-06 05:51] LABS: ALT (SGPT) 32 U/L (8-55); AST (SGOT) 38 U/L (5-34); Albumin 2.2 g/dL (3.4-4.8); Alkaline Phosphatase 423 U/L (40-110); Anion Gap 7 mmol/L (10-20); BUN (Urea Nitrogen) 16 mg/dL (9.8-20.1); Bilirubin, Total 0.4 mg/dL (0.2-1.2); Calc. Creatinine Clearance 109 mL/min (70-130); Carbon Dioxide 32 mmol/L (23-31); Chloride 105 mmol/L (98-107); Globulin 1.7 g/dL (2.4-3.5); Glucose 99 mg/dL (83-110); Protein, Total 3.9 g/dL (5.8-8.1); Sodium 139 mmol/L (136-145); Uric Acid 2.3 mg/dL (2.6-6.0)
[2021-03-06 06:12] LABS: Hemoglobin 9.8 g/dL (12.0-16.0); Mean Corpuscular HGB CONC 33.6 g/dL (32.0-36.0); Mean Corpuscular Volume 92.3 fL (78.0-98.0); Mean Platelet Volume 11.2 fL (7.4-10.4); Platelet Count 117 thou/uL (130-400); RBC Distribution Width 16.3 % (11.5-14.5); Red Blood Cell (RBC) Count 3.16 mill/uL (4.20-5.40); White Blood Cell (WBC) Count 3.8 thou/uL (4.8-10.8)
[2021-03-06 06:47] LABS: Band 12 % (5-11); Eosinophils 1 % (0-10); Lymphocytes 5 % (21-51); MDiff Complete? YES; Neutrophil 82 % (42-75); Platelet Morphology Comment Appears Decreased
[2021-03-06] MEDS: Polyethylene Glycol 3350 17 GM Packet PO SCH (08:52)
[2021-03-06] MEDS: Bisacodyl 5 MG TAB PO SCH (08:56)
[2021-03-06] MEDS: Naproxen 500 MG TAB PO SCH ×2 (08:57→20:15)
[2021-03-06] MEDS: Allopurinol 300 MG TAB PO SCH (08:57)
[2021-03-06] MEDS: Enoxaparin Sodium 40 MG/0.4 ML SYRINGE SC SCH (08:58)
[2021-03-06] MEDS: Preparation H Suppository PR SCH ×4 (08:59→20:16)
[2021-03-06] MEDS ORDERED: Furosemide 20 MG TAB PO SCH (10:00)
[2021-03-06] MEDS: Nystatin 500,000 UNITS/5 ML UDCUP SSW SCH ×4 (10:22→20:15)
[2021-03-06] MEDS: hydrOXYzine 10 MG TAB PO PRN (12:00)
[2021-03-06] MEDS: diphenhydrAMINE 25 MG CAP PO SCH (20:15)
[2021-03-07 06:15] LABS: Hemoglobin 8.6 g/dL (12.0-16.0); Mean Corpuscular HGB CONC 33.5 g/dL (32.0-36.0); Mean Corpuscular Hemoglobin 31.3 pg (27.0-31.0); Mean Corpuscular Volume 93.3 fL (78.0-98.0); Mean Platelet Volume 10.8 fL (7.4-10.4); Platelet Count 101 thou/uL (130-400); Red Blood Cell (RBC) Count 2.75 mill/uL (4.20-5.40); White Blood Cell (WBC) Count 0.3 thou/uL (4.8-10.8)
[2021-03-07 06:25] LABS: Anisocytosis SLIGHT = 6-15 cells (100X) (0-5/hpf); MDiff Complete? YES; Platelet Morphology Comment Appears Decreased
[2021-03-07 06:35] LABS: ALT (SGPT) 34 U/L (8-55); AST (SGOT) 34 U/L (5-34); Albumin 2.3 g/dL (3.4-4.8); Alkaline Phosphatase 414 U/L (40-110); Anion Gap 10 mmol/L (10-20); BUN (Urea Nitrogen) 13 mg/dL (9.8-20.1); Bilirubin, Total 0.5 mg/dL (0.2-1.2); Calc. Creatinine Clearance 114 mL/min (70-130); Calcium 8.7 mg/dL (7.8-10.44); Carbon Dioxide 31 mmol/L (23-31); Chloride 101 mmol/L (98-107); Globulin 1.8 g/dL (2.4-3.5); Glucose 98 mg/dL (83-110); Potassium 4.6 mmol/L (3.5-5.1); Protein, Total 4.1 g/dL (5.8-8.1); Sodium 137 mmol/L (136-145)
[2021-03-07] MEDS ORDERED: Furosemide 20 MG TAB PO SCH (07:45)
[2021-03-07] MEDS ORDERED: Methotrexate Sodium/PF 12.5 MG in Sodium Chloride 0.9% 9.5 ML IV SCH (08:45)
[2021-03-07] MEDS: Allopurinol 300 MG TAB PO SCH (08:46)
[2021-03-07] MEDS: Enoxaparin Sodium 40 MG/0.4 ML SYRINGE SC SCH (09:00)
[2021-03-07] MEDS: Bisacodyl 5 MG TAB PO SCH (09:00)
[2021-03-07] MEDS: Naproxen 500 MG TAB PO SCH ×2 (09:00→20:31)
[2021-03-07] MEDS: Preparation H Suppository PR SCH ×4 (09:00→20:04)
[2021-03-07] MEDS: Polyethylene Glycol 3350 17 GM Packet PO SCH (09:00)
[2021-03-07] MEDS: Nystatin 500,000 UNITS/5 ML UDCUP SSW SCH ×4 (09:00→20:37)
[2021-03-07 13:14] LABS: CSF, Glucose 56 mg/dl (40-70); CSF, Protein 23 mg/dL (15-40)
[2021-03-07 13:16] LABS: CSF Source CSF; Clarity Clear (Clear); Tube # 4
[2021-03-07] MEDS: diphenhydrAMINE 25 MG CAP PO SCH (20:31)
[2021-03-07] MEDS: hydrOXYzine 10 MG TAB PO PRN (20:31)
[2021-03-08 06:22] LABS: Hemoglobin 7.3 g/dL (12.0-16.0); Mean Corpuscular HGB CONC 31.5 g/dL (32.0-36.0); Mean Corpuscular Hemoglobin 29.1 pg (27.0-31.0); Mean Corpuscular Volume 92.5 fL (78.0-98.0); Mean Platelet Volume 10.8 fL (7.4-10.4); Platelet Count 78 thou/uL (130-400); RBC Distribution Width 15.5 % (11.5-14.5); Red Blood Cell (RBC) Count 2.51 mill/uL (4.20-5.40); White Blood Cell (WBC) Count 0.1 thou/uL (4.8-10.8)
[2021-03-08 06:42] LABS: Hypochromia SLIGHT = 6-15 cells (100X) (0-5/hpf); MDiff Complete? YES; Platelet Morphology Comment Appears Decreased
[2021-03-08 06:51] LABS: ALT (SGPT) 25 U/L (8-55); AST (SGOT) 26 U/L (5-34); Albumin 2.3 g/dL (3.4-4.8); Alkaline Phosphatase 395 U/L (40-110); Anion Gap 8 mmol/L (10-20); Bilirubin, Total 0.4 mg/dL (0.2-1.2); Calc. Creatinine Clearance 112 mL/min (70-130); Calcium 8.7 mg/dL (7.8-10.44); Carbon Dioxide 34 mmol/L (23-31); Chloride 103 mmol/L (98-107); Globulin 1.7 g/dL (2.4-3.5); Glucose 108 mg/dL (83-110); Potassium 3.9 mmol/L (3.5-5.1); Sodium 141 mmol/L (136-145); Uric Acid Less than 2.0 mg/dL (2.6-6.0)
[2021-03-08 06:56] LABS: BUN (Urea Nitrogen) 9 mg/dL (9.8-20.1)
[2021-03-08] MEDS: Bisacodyl 5 MG TAB PO SCH (09:06)
[2021-03-08] MEDS: Naproxen 500 MG TAB PO SCH (09:06)
[2021-03-08] MEDS: Allopurinol 300 MG TAB PO SCH (09:07)
[2021-03-08] MEDS: Enoxaparin Sodium 40 MG/0.4 ML SYRINGE SC SCH (09:07)
[2021-03-08] MEDS: Nystatin 500,000 UNITS/5 ML UDCUP SSW SCH (09:07)
[2021-03-08] MEDS: Polyethylene Glycol 3350 17 GM Packet PO SCH (09:07)
[2021-03-08] MEDS: Preparation H Suppository PR SCH (09:08)
[2021-03-08 13:06] VITALS: BP 119/59; TEMP 98
== END 2021-03-08 15:00 | DRG 823 ==
LOC: ERS 12:15 → 2NO 13:51 → ONC 02-23 10:22 → CCU 02-28 16:36 → IMCU/EMU 03-02 15:54 → ONC 03-04 18:40
PROVIDERS: ADMIT Student in an Organized Health Care Education/Training Program; ATTEND Student in an Organized Health Care Education/Training Program
PROC: 30233N1 Transfusion of Nonautologous Red Blood Cells into Peripheral Vein, Percutaneous Approach (ICD-10-PCS; 2021-02-20)
PROC: 07DR3ZX Extraction of Iliac Bone Marrow, Percutaneous Approach, Diagnostic (ICD-10-PCS; 2021-02-21)
PROC: 0JH60WZ Insertion of Totally Implantable Vascular Access Device into Chest Subcutaneous Tissue and Fascia, Open Approach (ICD-10-PCS; principal; 2021-02-23)
PROC: 02HV33Z Insertion of Infusion Device into Superior Vena Cava, Percutaneous Approach (ICD-10-PCS; 2021-02-23)
PROC: B518ZZA Fluoroscopy of Superior Vena Cava, Guidance (ICD-10-PCS; 2021-02-23)
PROC: 0W9B3ZZ Drainage of Left Pleural Cavity, Percutaneous Approach (ICD-10-PCS; 2021-02-28)
PROC: 3E05305 Introduction of Other Antineoplastic into Peripheral Artery, Percutaneous Approach (ICD-10-PCS; 2021-03-03)
PROC: 009U3ZX Drainage of Spinal Canal, Percutaneous Approach, Diagnostic (ICD-10-PCS; 2021-03-07)
DX: C83.32 Diffuse large B-cell lymphoma, intrathoracic lymph nodes (principal); J96.01 Acute respiratory failure with hypoxia; D61.810 Antineoplastic chemotherapy induced pancytopenia; E87.2 Acidosis; J91.0 Malignant pleural effusion; B37.0 Candidal stomatitis; Z20.822 Contact with and (suspected) exposure to COVID-19; E78.5 Hyperlipidemia, unspecified; K21.9 Gastro-esophageal reflux disease without esophagitis; D63.0 Anemia in neoplastic disease; E87.6 Hypokalemia; E88.09 Other disorders of plasma-protein metabolism, not elsewhere classified; E78.00 Pure hypercholesterolemia, unspecified; M85.80 Other specified disorders of bone density and structure, unspecified site; K64.4 Residual hemorrhoidal skin tags; K64.8 Other hemorrhoids; T80.89XA Other complications following infusion, transfusion and therapeutic injection, initial encounter; Y84.8 Other medical procedures as the cause of abnormal reaction of the patient, or of later complication, without mention of misadventure at the time of the procedure; E83.52 Hypercalcemia; E87.70 Fluid overload, unspecified; T45.1X5A Adverse effect of antineoplastic and immunosuppressive drugs, initial encounter; K13.79 Other lesions of oral mucosa; Z85.828 Personal history of other malignant neoplasm of skin; Z79.82 Long term (current) use of aspirin; Z79.899 Other long term (current) drug therapy
CPT/HCPCS: 0240U; 36415; 36430; 36600; 62270; 70450; 71045; 71275; 74018; 80048; 80053; 80202; 81001; 81003; 82150; 82805; 82945; 82977; 83605; 83615; 83735; 83880; 83970; 84100; 84145; 84157; 84478; 84484; 84550; 85007; 85014; 85018; 85025; 85027; 85046; 85060; 85097; 86850; 86900; 86901; 87040; 87070; 87086; 87116; 87205; 87206; 88112; 88184; 88185; 88237; 88264; 88280; 88305; 88311; 88313; 88341; 88342; 88360; 88365; 89051; 93005; 93010; 93306; 94640; 94760; 96365; 96367; C1788; C9113; J0630; J0690; J0692; J0696; J1100; J1200; J1453; J1642; J1650; J1940; J2185; J2250; J2405; J2469; J2704; J3010; J3370; J3480; J3489; J3490; J7030; J7050; J7512; J7620; J9000; J9070; J9370; P9016; P9047; Q0163; Q5108; Q5115; Q9967; S0020

== ENCOUNTER 2021-04-25 07:10 | Day surgery (SDC) | payer MEDICARE ==
[2021-04-19 11:14] VITALS: BMI 22.4
[2021-04-25] MEDS ORDERED: Methotrexate Sodium/PF 12.5 MG in Sodium Chloride 0.9% 9.5 ML IV SCH (07:15)
[2021-04-25] MEDS ORDERED: Methotrexate Sodium/PF 12.5 MG in Sodium Chloride 0.9% 9.5 ML IT SCH (07:30)
[2021-04-25 08:16] VITALS: BP 112/70; TEMP 97.8
[2021-04-25 09:35] LABS: CSF, Glucose 57 mg/dl (40-70); CSF, Protein 43 mg/dL (15-40)
[2021-04-25 09:37] LABS: Color Of CSF Supernatant COLORLESS (Colorless); Unspun CSF Color PINK (Colorless)
[2021-04-25 09:38] LABS: Tube # 1
[2021-04-25 09:44] LABS: CSF Source CSF; Clarity Clear (Clear); Tube # 4
== END 2021-04-25 10:00 | disposition home or self-care (01) ==
LOC: RAD 07:10
PROVIDERS: ATTEND Internal Medicine Hematology & Oncology
PROC: 009U3ZX Drainage of Spinal Canal, Percutaneous Approach, Diagnostic (ICD-10-PCS; principal; 2021-04-25)
PROC: B01BZZZ Fluoroscopy of Spinal Cord (ICD-10-PCS; 2021-04-25)
DX: C83.39 Diffuse large B-cell lymphoma, extranodal and solid organ sites (principal); E78.5 Hyperlipidemia, unspecified; M85.80 Other specified disorders of bone density and structure, unspecified site; K21.9 Gastro-esophageal reflux disease without esophagitis; Z79.82 Long term (current) use of aspirin; Z79.899 Other long term (current) drug therapy
CPT/HCPCS: 62270; 82945; 84157; 87070; 87205; 88112; 89051; J9250

== ENCOUNTER 2021-05-02 08:13 | Outpatient (CLI) | payer MEDICARE | END 2021-05-02 08:14 | disposition home or self-care (01) | LOC: PET 08:13 | PROVIDERS: ATTEND Internal Medicine Hematology & Oncology | DX: C83.39 Diffuse large B-cell lymphoma, extranodal and solid organ sites (principal); R59.0 Localized enlarged lymph nodes | CPT/HCPCS: 78815; A9552 ==

== ENCOUNTER 2021-11-13 12:35 | Outpatient (CLI) | payer MEDICARE | END 2021-11-13 12:36 | disposition home or self-care (01) | LOC: BICRAD 12:35 | PROVIDERS: ATTEND Family Medicine | DX: J18.9 Pneumonia, unspecified organism (principal); R91.8 Other nonspecific abnormal finding of lung field; Z86.16 Personal history of COVID-19 | CPT/HCPCS: 71046 ==

== ENCOUNTER 2021-11-14 08:13 | Outpatient (CLI) | payer MEDICARE | END 2021-11-14 08:14 | disposition home or self-care (01) | LOC: CT 08:13 | PROVIDERS: ATTEND Family Medicine | DX: I26.99 Other pulmonary embolism without acute cor pulmonale (principal); U07.1 COVID-19; J12.82 Pneumonia due to coronavirus disease 2019; K44.9 Diaphragmatic hernia without obstruction or gangrene | CPT/HCPCS: 71275 ==

== ENCOUNTER 2021-11-14 15:48 | Inpatient (IN) | payer MEDICARE ==
[2021-11-14 16:50] LABS: Hemoglobin 12.9 g/dL (12.0-16.0); Mean Corpuscular HGB CONC 34.7 g/dL (32.0-36.0); Mean Corpuscular Hemoglobin 34.6 pg (27.0-31.0); Mean Corpuscular Volume 99.5 fL (78.0-98.0); Mean Platelet Volume 7.7 fL (7.4-10.4); Platelet Count 182 thou/uL (130-400); RBC Distribution Width 11.6 % (11.5-14.5); Red Blood Cell (RBC) Count 3.72 mill/uL (4.20-5.40); White Blood Cell (WBC) Count 2.3 thou/uL (4.8-10.8)
[2021-11-14] MEDS ORDERED: Azithromycin 500 MG VIAL ONE (16:53)
[2021-11-14] MEDS ORDERED: cefTRIAXone\\ROCEPHIN 2 GM VIAL ONE (16:53)
[2021-11-14 17:00] LABS: Bilirubin Negative (Negative); Blood, Urine Negative (Negative); Clarity Clear (Clear); Glucose, Urine (Dipstick) Normal (Negative); Ketone, Urine Negative (Negative); Leukocyte Negative Leu/uL (Negative); Nitrite Negative (Negative); Protein, Urine (Dipstick) Negative (Neg-Trace); Urobilinogen Normal mg/dL (Less than 2); pH, Urine 6.5 (5.0-9.0)
[2021-11-14 17:11] LABS: Band 11 % (5-11); Lymphocytes 5 % (21-51); MDiff Complete? YES; Monocytes 8 % (0-10); Neutrophil 74 % (42-75); Platelet Morphology Comment Appears Adequate; RBC Morphology Normal; Reactive Lymphocytes 2 % (0-10)
[2021-11-14 17:18] LABS: ALT (SGPT) 56 U/L (8-55); AST (SGOT) 112 U/L (5-34); Albumin 3.6 g/dL (3.4-4.8); Alkaline Phosphatase 130 U/L (40-110); Anion Gap 17 mmol/L (10-20); BUN (Urea Nitrogen) 12 mg/dL (9.8-20.1); Bilirubin, Total 0.4 mg/dL (0.2-1.2); Calc. Creatinine Clearance 0 mL/min (70-130); Carbon Dioxide 22 mmol/L (23-31); Chloride 99 mmol/L (98-107); Globulin 2.7 g/dL (2.4-3.5); Glucose 124 mg/dL (83-110); Magnesium 1.9 mg/dL (1.6-2.6); Potassium 4.5 mmol/L (3.5-5.1); Protein, Total 6.3 g/dL (5.8-8.1); Sodium 133 mmol/L (136-145)
[2021-11-14] MEDS ORDERED: Acetaminophen 500 MG TAB ONE (17:51)
[2021-11-14] MEDS ORDERED: Calcium Carbonate 500 MG ChewTAB PO PRN (21:11)
[2021-11-14] MEDS ORDERED: Acetaminophen 650 MG Suppository PR PRN (21:11)
[2021-11-14] MEDS ORDERED: Lactated Ringer's 1,000 ML IV SCH (21:15)
[2021-11-14] MEDS ORDERED: Vancomycin 1 GM in Premix Bag 1 BAG IVPB SCH (22:00)
[2021-11-14] MEDS: Acetaminophen 325 MG TAB PO PRN (22:37)
[2021-11-15 01:38] LABS: SARS-CoV-2 NAA Rapid Test DETECTED (NotDetected)
[2021-11-15 05:32] LABS: Anion Gap 13 mmol/L (10-20); BUN (Urea Nitrogen) 10 mg/dL (9.8-20.1); Calc. Creatinine Clearance 70 mL/min (70-130); Calcium 8.4 mg/dL (7.8-10.44); Carbon Dioxide 23 mmol/L (23-31); Chloride 109 mmol/L (98-107); Glucose 100 mg/dL (83-110); Potassium 4.2 mmol/L (3.5-5.1); Sodium 141 mmol/L (136-145)
[2021-11-15 05:40] LABS: Hemoglobin 11.2 g/dL (12.0-16.0); MDiff Complete? YES; Mean Corpuscular HGB CONC 33.6 g/dL (32.0-36.0); Mean Corpuscular Hemoglobin 34.4 pg (27.0-31.0); Mean Platelet Volume 7.7 fL (7.4-10.4); Platelet Count 170 thou/uL (130-400); RBC Distribution Width 11.6 % (11.5-14.5); Red Blood Cell (RBC) Count 3.25 mill/uL (4.20-5.40); White Blood Cell (WBC) Count 1.3 thou/uL (4.8-10.8)
[2021-11-15 05:41] LABS: Band 18 % (5-11); Lymphocytes 8 % (21-51); Monocytes 14 % (0-10); Neutrophil 58 % (42-75); Nucleated RBC 1 % (0); Platelet Morphology Comment Appears Adequate; Reactive Lymphocytes 2 % (0-10)
[2021-11-15] MEDS: Enoxaparin Sodium 40 MG/0.4 ML SYRINGE SC SCH (09:11)
[2021-11-15] MEDS: Acetaminophen 325 MG TAB PO PRN ×2 (09:11→19:27)
[2021-11-15] MEDS ORDERED: Ibuprofen 200 MG TAB PO SCH (11:30)
[2021-11-15] MEDS ORDERED: Azithromycin 250 MG TAB PO SCH (17:00)
[2021-11-15] MEDS: cefTRIAXone\\ROCEPHIN 1 GM in Sodium Chloride 0.9% 100 ML IVPB SCH (17:27)
[2021-11-15] MEDS ORDERED: Lactated Ringer's 500 ML IV SCH (20:45)
[2021-11-15 22:31] LABS: Hemoglobin 11.4 g/dL (12.0-16.0); Mean Corpuscular Hemoglobin 34.9 pg (27.0-31.0); Mean Platelet Volume 7.3 fL (7.4-10.4); Platelet Count 194 thou/uL (130-400); RBC Distribution Width 11.8 % (11.5-14.5); Red Blood Cell (RBC) Count 3.25 mill/uL (4.20-5.40)
[2021-11-15 22:49] LABS: Band 17 % (5-11); Hypochromia SLIGHT = 6-15 cells (100X) (0-5/hpf); Lymphocytes 6 % (21-51); MDiff Complete? YES; Monocytes 7 % (0-10); Neutrophil 70 % (42-75); Platelet Morphology Comment Appears Adequate
[2021-11-16] MEDS: Ondansetron ODT 4 MG TAB PO PRN (02:16)
[2021-11-16] MEDS: Acetaminophen 325 MG TAB PO PRN ×3 (02:17→16:06)
[2021-11-16] MEDS ORDERED: Lactated Ringer's 500 ML IV SCH (02:45)
[2021-11-16] MEDS ORDERED: Vancomycin 1 GM in Premix Bag 1 BAG IVPB SCH (03:30)
[2021-11-16] MEDS ORDERED: Dexamethasone 6 MG in Sodium Chloride 0.9% 50 ML IVPB SCH ×2 (09:00→21:00)
[2021-11-16] MEDS ORDERED: Benzonatate 100 MG CAP PO SCH (09:30)
[2021-11-16] MEDS: Enoxaparin Sodium 40 MG/0.4 ML SYRINGE SC SCH (10:24)
[2021-11-16] MEDS: Lactated Ringer's 1,000 ML IV SCH (10:26)
[2021-11-16] MEDS: Vancomycin HCl 750 MG in Sodium Chloride 0.9% 250 ML 250 ML IVPB SCH (16:07)
[2021-11-16] MEDS: Benzonatate 100 MG CAP PO SCH ×2 (16:07→21:47)
[2021-11-16] MEDS: cefTRIAXone\\ROCEPHIN 1 GM in Sodium Chloride 0.9% 100 ML IVPB SCH (17:38)
[2021-11-16] MEDS ORDERED: Ibuprofen 600 MG TAB PO PRN (17:39)
[2021-11-16] MEDS: Atorvastatin Calcium 40 MG TAB PO SCH (21:47)
[2021-11-16] MEDS: Dexamethasone 4 mg/ml Vial SLOW IVP SCH (21:47)
[2021-11-17] MEDS: Lactated Ringer's 1,000 ML IV SCH ×2 (04:00→13:50)
[2021-11-17] MEDS: Vancomycin HCl 750 MG in Sodium Chloride 0.9% 250 ML 250 ML IVPB SCH (04:01)
[2021-11-17] MEDS: Dexamethasone 4 mg/ml Vial SLOW IVP SCH ×2 (09:00→20:30)
[2021-11-17] MEDS ORDERED: Dexamethasone 4 mg/ml Vial SLOW IVP SCH (09:55)
[2021-11-17] MEDS: Enoxaparin Sodium 40 MG/0.4 ML SYRINGE SC SCH (10:06)
[2021-11-17] MEDS: Benzonatate 100 MG CAP PO SCH ×3 (10:07→20:30)
[2021-11-17 10:13] LABS: #Lymphocytes 0.1 thou/uL (1.20-3.40); #Monocytes 0.1 thou/uL (0.11-0.59); #Neutrophils 1.9 thou/uL (1.40-6.50); %Eosinophils 1.2 % (0.0-10.0); %Lymphocytes 4.5 % (21.0-51.0); %Monocytes 2.8 % (0.0-10.0); %Neutrophils 91.6 % (42.0-75.0); Hemoglobin 10.6 g/dL (12.0-16.0); Mean Corpuscular HGB CONC 33.7 g/dL (32.0-36.0); Mean Corpuscular Hemoglobin 34.1 pg (27.0-31.0); Mean Platelet Volume 7.2 fL (7.4-10.4); Platelet Count 234 thou/uL (130-400); RBC Distribution Width 11.7 % (11.5-14.5); Red Blood Cell (RBC) Count 3.12 mill/uL (4.20-5.40)
[2021-11-17 10:28] LABS: Anion Gap 10 mmol/L (10-20); BUN (Urea Nitrogen) 8 mg/dL (9.8-20.1); Calc. Creatinine Clearance 69 mL/min (70-130); Calcium 8.2 mg/dL (7.8-10.44); Carbon Dioxide 27 mmol/L (23-31); Chloride 106 mmol/L (98-107); Glucose 172 mg/dL (83-110); Potassium 3.7 mmol/L (3.5-5.1); Sodium 139 mmol/L (136-145)
[2021-11-17] MEDS ORDERED: Ibuprofen 600 MG TAB PO SCH (11:45)
[2021-11-17 15:19] LABS: Vancomycin, Trough 8.6 ug/mL
[2021-11-17] MEDS: VANCOMYCIN 1.25 GM/250 ML BAG 1.25 GM in Premix Bag 1 BAG IVPB SCH (16:46)
[2021-11-17] MEDS: cefTRIAXone\\ROCEPHIN 1 GM in Sodium Chloride 0.9% 100 ML IVPB SCH (16:59)
[2021-11-17] MEDS: Atorvastatin Calcium 40 MG TAB PO SCH (20:30)
[2021-11-18] MEDS: Lactated Ringer's 1,000 ML IV SCH ×2 (02:30→11:50)
[2021-11-18] MEDS: VANCOMYCIN 1.25 GM/250 ML BAG 1.25 GM in Premix Bag 1 BAG IVPB SCH ×2 (04:16→16:04)
[2021-11-18] MEDS: Ondansetron ODT 4 MG TAB PO PRN ×2 (04:23→19:49)
[2021-11-18 08:24] LABS: #Lymphocytes 0.2 thou/uL (1.20-3.40); #Monocytes 0.2 thou/uL (0.11-0.59); #Neutrophils 3.6 thou/uL (1.40-6.50); %Basophils 0.1 % (0.0-1.0); %Eosinophils 0.4 % (0.0-10.0); %Lymphocytes 3.7 % (21.0-51.0); %Monocytes 5.8 % (0.0-10.0); Hemoglobin 10.1 g/dL (12.0-16.0); Mean Corpuscular HGB CONC 33.6 g/dL (32.0-36.0); Mean Corpuscular Hemoglobin 34.5 pg (27.0-31.0); Mean Platelet Volume 7.3 fL (7.4-10.4); Platelet Count 273 thou/uL (130-400); RBC Distribution Width 11.9 % (11.5-14.5); Red Blood Cell (RBC) Count 2.92 mill/uL (4.20-5.40)
[2021-11-18 08:39] LABS: Anion Gap 12 mmol/L (10-20); BUN (Urea Nitrogen) 13 mg/dL (9.8-20.1); Calc. Creatinine Clearance 77 mL/min (70-130); Carbon Dioxide 25 mmol/L (23-31); Chloride 110 mmol/L (98-107); Glucose 136 mg/dL (83-110); Potassium 3.8 mmol/L (3.5-5.1); Sodium 143 mmol/L (136-145)
[2021-11-18] MEDS ORDERED: FLU VACC QS2021-22(65YR UP)/PF 240 MCG/0.7 ML SYRINGE IM ONE (09:00)
[2021-11-18] MEDS: Benzonatate 100 MG CAP PO SCH ×3 (09:29→19:49)
[2021-11-18] MEDS: Dexamethasone 4 mg/ml Vial SLOW IVP SCH ×2 (09:30→19:49)
[2021-11-18] MEDS: Enoxaparin Sodium 40 MG/0.4 ML SYRINGE SC SCH (09:32)
[2021-11-18 15:08] LABS: Actual Bicarbonate (HCO3a) 24.9 mEq/L (22-28); Base Excess (BEa) 1.8 mEq/L (-2.0 to +3.0); CO2 Tension 33.6 mmHg (35.0-45.0); Calcium, Ionized (arterial) 1.13 mmol/L (1.12-1.30); Carboxyhemoglobin (COHb) 0.3 gm% (0.0-3.0); Hemoglobin (Hb) 10.9 g/dL (12.0-16.0); O2 Tension (PaO2), arterial 61.7 mmHg (> 70.0); Potassium - ABG Lab 3.84 mmol/L (3.70-5.30); pH, Arterial 7.49 (7.35-7.45)
[2021-11-18 15:30] LABS: Puncture Site RRA
[2021-11-18] MEDS: cefTRIAXone\\ROCEPHIN 1 GM in Sodium Chloride 0.9% 100 ML IVPB SCH (18:11)
[2021-11-18] MEDS: Atorvastatin Calcium 40 MG TAB PO SCH (19:49)
[2021-11-19] MEDS: Lactated Ringer's 1,000 ML IV SCH (03:20)
[2021-11-19] MEDS: VANCOMYCIN 1.25 GM/250 ML BAG 1.25 GM in Premix Bag 1 BAG IVPB SCH ×2 (03:21→16:47)
[2021-11-19 03:27] LABS: #Lymphocytes 0.1 thou/uL (1.20-3.40); #Monocytes 0.3 thou/uL (0.11-0.59); #Neutrophils 4.5 thou/uL (1.40-6.50); %Basophils 0.2 % (0.0-1.0); %Eosinophils 0.3 % (0.0-10.0); %Lymphocytes 2.9 % (21.0-51.0); %Monocytes 5.2 % (0.0-10.0); %Neutrophils 91.4 % (42.0-75.0); Hemoglobin 10.2 g/dL (12.0-16.0); Mean Corpuscular HGB CONC 33.7 g/dL (32.0-36.0); Mean Corpuscular Hemoglobin 34.4 pg (27.0-31.0); Mean Platelet Volume 7.1 fL (7.4-10.4); Platelet Count 278 thou/uL (130-400); Red Blood Cell (RBC) Count 2.97 mill/uL (4.20-5.40)
[2021-11-19 03:45] LABS: Vancomycin, Trough 15.1 ug/mL
[2021-11-19 03:47] LABS: Anion Gap 11 mmol/L (10-20); BUN (Urea Nitrogen) 11 mg/dL (9.8-20.1); Calc. Creatinine Clearance 70 mL/min (70-130); Calcium 8.1 mg/dL (7.8-10.44); Carbon Dioxide 27 mmol/L (23-31); Chloride 109 mmol/L (98-107); Glucose 139 mg/dL (83-110); Potassium 3.8 mmol/L (3.5-5.1); Sodium 143 mmol/L (136-145)
[2021-11-19] MEDS: Dexamethasone 4 mg/ml Vial SLOW IVP SCH ×2 (09:50→20:14)
[2021-11-19] MEDS: Benzonatate 100 MG CAP PO SCH ×3 (09:50→20:15)
[2021-11-19] MEDS: Enoxaparin Sodium 40 MG/0.4 ML SYRINGE SC SCH (09:51)
[2021-11-19] MEDS: Ondansetron ODT 4 MG TAB PO PRN (09:58)
[2021-11-19] MEDS: cefTRIAXone\\ROCEPHIN 1 GM in Sodium Chloride 0.9% 100 ML IVPB SCH (16:47)
[2021-11-19] MEDS: Atorvastatin Calcium 40 MG TAB PO SCH (20:15)
[2021-11-20] MEDS ORDERED: hydrOXYzine 25 MG TAB PO SCH (01:30)
[2021-11-20 04:43] LABS: Anion Gap 11 mmol/L (10-20); BUN (Urea Nitrogen) 13 mg/dL (9.8-20.1); Calc. Creatinine Clearance 73 mL/min (70-130); Calcium 8.2 mg/dL (7.8-10.44); Carbon Dioxide 28 mmol/L (23-31); Chloride 108 mmol/L (98-107); Glucose 143 mg/dL (83-110); Potassium 3.5 mmol/L (3.5-5.1); Sodium 143 mmol/L (136-145)
[2021-11-20] MEDS: VANCOMYCIN 1.25 GM/250 ML BAG 1.25 GM in Premix Bag 1 BAG IVPB SCH (05:00)
[2021-11-20 06:19] LABS: Hemoglobin 9.7 g/dL (12.0-16.0); Mean Corpuscular HGB CONC 35.3 g/dL (32.0-36.0); Mean Corpuscular Hemoglobin 35.7 pg (27.0-31.0); Mean Platelet Volume 7.2 fL (7.4-10.4); Platelet Count 253 thou/uL (130-400); RBC Distribution Width 11.8 % (11.5-14.5); Red Blood Cell (RBC) Count 2.71 mill/uL (4.20-5.40); White Blood Cell (WBC) Count 5.6 thou/uL (4.8-10.8)
[2021-11-20 06:54] LABS: Band 26 % (5-11); Lymphocytes 4 % (21-51); MDiff Complete? YES; Monocytes 4 % (0-10); Neutrophil 66 % (42-75)
[2021-11-20] MEDS: Enoxaparin Sodium 40 MG/0.4 ML SYRINGE SC SCH (09:36)
[2021-11-20] MEDS: Benzonatate 100 MG CAP PO SCH ×3 (09:38→20:14)
[2021-11-20] MEDS: Amoxicillin/Potassium Clav 875 MG TAB PO SCH ×2 (09:38→20:14)
[2021-11-20] MEDS ORDERED: Dexamethasone 4 mg/ml Vial SLOW IVP SCH (09:45)
[2021-11-20] MEDS ORDERED: hydrOXYzine 25 MG TAB PO PRN (14:38)
[2021-11-20] MEDS: Dextrose 5%-Lactated Ringers 1,000 ML IV SCH (15:15)
[2021-11-20] MEDS: Atorvastatin Calcium 40 MG TAB PO SCH (20:14)
[2021-11-20] MEDS: Dexamethasone 4 mg/ml Vial SLOW IVP SCH (20:14)
[2021-11-20] MEDS: Ondansetron ODT 4 MG TAB PO PRN (20:14)
[2021-11-21] MEDS: Dextrose 5%-Lactated Ringers 1,000 ML IV SCH ×2 (00:30→21:05)
[2021-11-21 05:08] LABS: Anion Gap 11 mmol/L (10-20); BUN (Urea Nitrogen) 15 mg/dL (9.8-20.1); Calc. Creatinine Clearance 73 mL/min (70-130); Carbon Dioxide 31 mmol/L (23-31); Chloride 107 mmol/L (98-107); Glucose 150 mg/dL (83-110); Potassium 3.6 mmol/L (3.5-5.1); Sodium 145 mmol/L (136-145)
[2021-11-21 05:15] LABS: Band 11 % (5-11); Hemoglobin 9.2 g/dL (12.0-16.0); MDiff Complete? YES; Mean Corpuscular HGB CONC 34.8 g/dL (32.0-36.0); Mean Corpuscular Hemoglobin 34.8 pg (27.0-31.0); Mean Platelet Volume 7.3 fL (7.4-10.4); Monocytes 3 % (0-10); Neutrophil 86 % (42-75); Platelet Count 209 thou/uL (130-400); RBC Distribution Width 11.8 % (11.5-14.5); Red Blood Cell (RBC) Count 2.64 mill/uL (4.20-5.40); White Blood Cell (WBC) Count 6.8 thou/uL (4.8-10.8)
[2021-11-21] MEDS: Enoxaparin Sodium 40 MG/0.4 ML SYRINGE SC SCH (09:32)
[2021-11-21] MEDS: Dexamethasone 4 mg/ml Vial SLOW IVP SCH ×2 (09:33→21:06)
[2021-11-21] MEDS: Amoxicillin/Potassium Clav 875 MG TAB PO SCH ×2 (09:33→21:05)
[2021-11-21] MEDS: Benzonatate 100 MG CAP PO SCH ×3 (09:33→21:06)
[2021-11-21] MEDS: Atorvastatin Calcium 40 MG TAB PO SCH (21:05)
[2021-11-21] MEDS: hydrOXYzine 25 MG TAB PO SCH (21:06)
[2021-11-21 21:44] LABS: Actual Bicarbonate (HCO3a) 28.3 mEq/L (22-28); Analyzer IN Cardio ER; CO2 Tension 36.4 mmHg (35.0-45.0); Calcium, Ionized (arterial) 1.09 mmol/L (1.12-1.30); Carboxyhemoglobin (COHb) 0.3 gm% (0.0-3.0); Hemoglobin (Hb) 9.5 g/dL (12.0-16.0); Potassium - ABG Lab 3.06 mmol/L (3.70-5.30); pH, Arterial 7.51 (7.35-7.45)
[2021-11-21 21:47] LABS: O2 Tension (PaO2), arterial 45.9 mmHg (> 70.0); Puncture Site LRA
[2021-11-22 04:29] LABS: Anion Gap 13 mmol/L (10-20); BUN (Urea Nitrogen) 12 mg/dL (9.8-20.1); Calc. Creatinine Clearance 80 mL/min (70-130); Calcium 8.1 mg/dL (7.8-10.44); Carbon Dioxide 28 mmol/L (23-31); Chloride 106 mmol/L (98-107); Glucose 103 mg/dL (83-110); Potassium 3.1 mmol/L (3.5-5.1); Sodium 144 mmol/L (136-145)
[2021-11-22 05:05] LABS: Band 11 % (5-11); Lymphocytes 3 % (21-51); MDiff Complete? YES; Mean Corpuscular HGB CONC 34.5 g/dL (32.0-36.0); Mean Corpuscular Hemoglobin 34.2 pg (27.0-31.0); Mean Platelet Volume 7.4 fL (7.4-10.4); Monocytes 4 % (0-10); Neutrophil 82 % (42-75); Platelet Count 187 thou/uL (130-400); RBC Distribution Width 11.7 % (11.5-14.5); Red Blood Cell (RBC) Count 2.64 mill/uL (4.20-5.40); White Blood Cell (WBC) Count 9.1 thou/uL (4.8-10.8)
[2021-11-22] MEDS ORDERED: Potassium Chloride 20 MEQ TAB PO SCH (06:00)
[2021-11-22] MEDS: Dextrose 5%-Lactated Ringers 1,000 ML IV SCH ×2 (06:42→18:39)
[2021-11-22] MEDS: Enoxaparin Sodium 40 MG/0.4 ML SYRINGE SC SCH (08:50)
[2021-11-22] MEDS: Dexamethasone 4 mg/ml Vial SLOW IVP SCH ×2 (08:50→20:04)
[2021-11-22] MEDS: Benzonatate 100 MG CAP PO SCH ×3 (08:54→20:04)
[2021-11-22] MEDS: Lorazepam 0.5 MG TAB PO PRN ×2 (13:31→20:04)
[2021-11-22] MEDS: Albuterol Sulfate 2.5 mg/3 ml Neb NEB SCH ×2 (13:44→18:51)
[2021-11-22] MEDS: Atorvastatin Calcium 40 MG TAB PO SCH (20:04)
[2021-11-22] MEDS: hydrOXYzine 25 MG TAB PO SCH (20:05)
[2021-11-23] MEDS: Albuterol Sulfate 2.5 mg/3 ml Neb NEB SCH ×4 (00:03→19:40)
[2021-11-23] MEDS: Dextrose 5%-Lactated Ringers 1,000 ML IV SCH ×3 (02:05→21:29)
[2021-11-23] MEDS: Lorazepam 0.5 MG TAB PO PRN (02:05)
[2021-11-23] MEDS ORDERED: Lorazepam 2 MG/ML VIAL SLOW IVP PRN (07:13)
[2021-11-23] MEDS: Pantoprazole 40 MG VIAL IVP SCH (08:38)
[2021-11-23] MEDS: Enoxaparin Sodium 40 MG/0.4 ML SYRINGE SC SCH ×2 (08:38→20:01)
[2021-11-23] MEDS: Dexamethasone 10 MG/ML VIAL SLOW IVP SCH ×2 (08:38→20:01)
[2021-11-23 08:45] LABS: #Lymphocytes 0.2 thou/uL (1.20-3.40); #Monocytes 0.2 thou/uL (0.11-0.59); #Neutrophils 5.3 thou/uL (1.40-6.50); %Eosinophils 0.7 % (0.0-10.0); %Lymphocytes 2.7 % (21.0-51.0); %Monocytes 2.7 % (0.0-10.0); %Neutrophils 93.9 % (42.0-75.0); Hemoglobin 9.3 g/dL (12.0-16.0); Mean Corpuscular HGB CONC 35.1 g/dL (32.0-36.0); Mean Corpuscular Hemoglobin 35.2 pg (27.0-31.0); Platelet Count 155 thou/uL (130-400); RBC Distribution Width 12.3 % (11.5-14.5); Red Blood Cell (RBC) Count 2.64 mill/uL (4.20-5.40); White Blood Cell (WBC) Count 5.6 thou/uL (4.8-10.8)
[2021-11-23] MEDS ORDERED: Polyethylene Glycol 3350 17 GM Packet PO SCH (09:00)
[2021-11-23 09:05] LABS: Anion Gap 15 mmol/L (10-20); BUN (Urea Nitrogen) 9 mg/dL (9.8-20.1); Calc. Creatinine Clearance 73 mL/min (70-130); Calcium 8.5 mg/dL (7.8-10.44); Carbon Dioxide 31 mmol/L (23-31); Chloride 103 mmol/L (98-107); Glucose 158 mg/dL (83-110); Potassium 3.7 mmol/L (3.5-5.1); Sodium 145 mmol/L (136-145)
[2021-11-23] MEDS ORDERED: Bisacodyl 10 MG SUPP PR PRN (09:20)
[2021-11-23] MEDS ORDERED: Furosemide 20 MG/2 ML VIAL SLOW IVP SCH (09:30)
[2021-11-23] MEDS ORDERED: Morphine 2 MG/ML VIAL SLOW IVP PRN (12:47)
[2021-11-23] MEDS: Morphine 4 MG/ML VIAL SLOW IVP PRN (18:22)
[2021-11-23] MEDS ORDERED: Meropenem 1 GM in Sodium Chloride 0.9% 100 ML IVPB SCH (20:00)
[2021-11-24] MEDS: Albuterol Sulfate 2.5 mg/3 ml Neb NEB SCH ×4 (01:45→19:21)
[2021-11-24] MEDS: Meropenem 1 GM in Sodium Chloride 0.9% 100 ML IVPB SCH ×3 (04:19→19:42)
[2021-11-24] MEDS: Morphine 4 MG/ML VIAL SLOW IVP PRN ×2 (05:02→16:41)
[2021-11-24 06:54] LABS: Anion Gap 10 mmol/L (10-20); BUN (Urea Nitrogen) 13 mg/dL (9.8-20.1); Band 9 % (5-11); Calc. Creatinine Clearance 81 mL/min (70-130); Calcium 8.3 mg/dL (7.8-10.44); Carbon Dioxide 32 mmol/L (23-31); Chloride 104 mmol/L (98-107); Glucose 150 mg/dL (83-110); Hemoglobin 8.4 g/dL (12.0-16.0); MDiff Complete? YES; Mean Corpuscular HGB CONC 33.6 g/dL (32.0-36.0); Mean Corpuscular Hemoglobin 34.2 pg (27.0-31.0); Mean Platelet Volume 7.8 fL (7.4-10.4); Metamyelocyte 1 % (0-0); Monocytes 4 % (0-10); Neutrophil 86 % (42-75); Nucleated RBC 1 % (0); Platelet Count 132 thou/uL (130-400); Platelet Morphology Comment Appears Adequate; Potassium 3.7 mmol/L (3.5-5.1); RBC Distribution Width 13.2 % (11.5-14.5); Red Blood Cell (RBC) Count 2.45 mill/uL (4.20-5.40); Sodium 142 mmol/L (136-145); White Blood Cell (WBC) Count 7.2 thou/uL (4.8-10.8)
[2021-11-24] MEDS ORDERED: Lorazepam 2 MG/ML VIAL SLOW IVP PRN (07:23)
[2021-11-24] MEDS ORDERED: Furosemide 20 MG/2 ML VIAL SLOW IVP SCH (07:30)
[2021-11-24] MEDS: Pantoprazole 40 MG VIAL IVP SCH (08:40)
[2021-11-24] MEDS: Dexamethasone 10 MG/ML VIAL SLOW IVP SCH ×2 (08:40→19:42)
[2021-11-24] MEDS: Enoxaparin Sodium 40 MG/0.4 ML SYRINGE SC SCH ×2 (08:41→19:42)
[2021-11-24] MEDS: Dextrose 5%-Lactated Ringers 1,000 ML IV SCH (08:43)
[2021-11-24] MEDS: Amino Acids 4.25 %/Dextrose 5% 1,000 ML IV SCH (13:01)
[2021-11-25] MEDS: Albuterol Sulfate 2.5 mg/3 ml Neb NEB SCH ×4 (01:12→19:37)
[2021-11-25 04:20] LABS: Anion Gap 11 mmol/L (10-20); BUN (Urea Nitrogen) 19 mg/dL (9.8-20.1); Calc. Creatinine Clearance 84 mL/min (70-130); Calcium 8.5 mg/dL (7.8-10.44); Carbon Dioxide 31 mmol/L (23-31); Chloride 103 mmol/L (98-107); Glucose 164 mg/dL (83-110); Potassium 3.7 mmol/L (3.5-5.1); Sodium 141 mmol/L (136-145)
[2021-11-25 04:23] LABS: Band 16 % (5-11); Hemoglobin 8.9 g/dL (12.0-16.0); Hypochromia SLIGHT = 6-15 cells (100X) (0-5/hpf); MDiff Complete? YES; Macrocytosis SLIGHT = 6-15 cells (100X) (0-5/hpf); Mean Corpuscular HGB CONC 34.6 g/dL (32.0-36.0); Mean Corpuscular Hemoglobin 34.9 pg (27.0-31.0); Mean Platelet Volume 8.6 fL (7.4-10.4); Monocytes 5 % (0-10); Neutrophil 79 % (42-75); Platelet Count 143 thou/uL (130-400); Red Blood Cell (RBC) Count 2.54 mill/uL (4.20-5.40); White Blood Cell (WBC) Count 8.7 thou/uL (4.8-10.8)
[2021-11-25] MEDS: Meropenem 1 GM in Sodium Chloride 0.9% 100 ML IVPB SCH ×3 (05:57→21:17)
[2021-11-25] MEDS ORDERED: Bisacodyl 10 MG SUPP PR SCH (08:00)
[2021-11-25] MEDS ORDERED: Furosemide 20 MG/2 ML VIAL SLOW IVP SCH (08:30)
[2021-11-25] MEDS: Morphine 4 MG/ML VIAL SLOW IVP PRN (08:46)
[2021-11-25] MEDS: Pantoprazole 40 MG VIAL IVP SCH (08:46)
[2021-11-25] MEDS: Enoxaparin Sodium 40 MG/0.4 ML SYRINGE SC SCH ×2 (08:46→21:18)
[2021-11-25] MEDS: Dexamethasone 10 MG/ML VIAL SLOW IVP SCH ×2 (08:46→21:17)
[2021-11-25] MEDS ORDERED: Amino Acids 4.25 %/Dextrose 5% 2,000 ML BAG IV SCH (09:00)
[2021-11-25] MEDS: Amino Acids 4.25 %/Dextrose 5% 1,000 ML IV SCH (16:06)
[2021-11-26] MEDS: Albuterol Sulfate 2.5 mg/3 ml Neb NEB SCH ×4 (01:46→18:31)
[2021-11-26] MEDS: Meropenem 1 GM in Sodium Chloride 0.9% 100 ML IVPB SCH ×3 (04:18→20:21)
[2021-11-26 04:22] LABS: Band 11 % (5-11); Hemoglobin 9.8 g/dL (12.0-16.0); Lymphocytes 1 % (21-51); MDiff Complete? YES; Mean Corpuscular HGB CONC 34.6 g/dL (32.0-36.0); Mean Corpuscular Hemoglobin 34.9 pg (27.0-31.0); Mean Platelet Volume 8.5 fL (7.4-10.4); Monocytes 1 % (0-10); Neutrophil 87 % (42-75); Platelet Count 146 thou/uL (130-400); Platelet Morphology Comment Appears Adequate; White Blood Cell (WBC) Count 10.6 thou/uL (4.8-10.8)
[2021-11-26 04:30] LABS: Anion Gap 12 mmol/L (10-20); BUN (Urea Nitrogen) 20 mg/dL (9.8-20.1); Calc. Creatinine Clearance 99 mL/min (70-130); Calcium 8.5 mg/dL (7.8-10.44); Carbon Dioxide 30 mmol/L (23-31); Chloride 103 mmol/L (98-107); Glucose 174 mg/dL (83-110); Potassium 3.5 mmol/L (3.5-5.1); Sodium 141 mmol/L (136-145)
[2021-11-26] MEDS: Amino Acids 4.25 %/Dextrose 5% 1,000 ML IV SCH ×2 (04:58→17:48)
[2021-11-26] MEDS: Dexamethasone 10 MG/ML VIAL SLOW IVP SCH ×2 (08:34→20:21)
[2021-11-26] MEDS: Enoxaparin Sodium 40 MG/0.4 ML SYRINGE SC SCH ×2 (08:35→20:21)
[2021-11-26] MEDS: Morphine 4 MG/ML VIAL SLOW IVP PRN (08:35)
[2021-11-26] MEDS: Pantoprazole 40 MG VIAL IVP SCH (08:35)
[2021-11-27] MEDS: Albuterol Sulfate 2.5 mg/3 ml Neb NEB SCH ×4 (00:54→18:57)
[2021-11-27] MEDS: Meropenem 1 GM in Sodium Chloride 0.9% 100 ML IVPB SCH ×3 (03:47→20:45)
[2021-11-27] MEDS: Morphine 4 MG/ML VIAL SLOW IVP PRN (06:37)
[2021-11-27 06:39] LABS: Band 9 % (5-11); Hemoglobin 9.2 g/dL (12.0-16.0); Hypochromia SLIGHT = 6-15 cells (100X) (0-5/hpf); MDiff Complete? YES; Mean Corpuscular HGB CONC 34.3 g/dL (32.0-36.0); Mean Corpuscular Hemoglobin 34.8 pg (27.0-31.0); Mean Platelet Volume 8.6 fL (7.4-10.4); Monocytes 4 % (0-10); Neutrophil 87 % (42-75); Platelet Count 152 thou/uL (130-400); Platelet Morphology Comment Appears Adequate; RBC Distribution Width 13.1 % (11.5-14.5); Red Blood Cell (RBC) Count 2.64 mill/uL (4.20-5.40)
[2021-11-27 06:44] LABS: Anion Gap 9 mmol/L (10-20); BUN (Urea Nitrogen) 25 mg/dL (9.8-20.1); Calc. Creatinine Clearance 85 mL/min (70-130); Calcium 8.3 mg/dL (7.8-10.44); Carbon Dioxide 31 mmol/L (23-31); Chloride 104 mmol/L (98-107); Glucose 143 mg/dL (83-110); Potassium 3.4 mmol/L (3.5-5.1); Sodium 141 mmol/L (136-145)
[2021-11-27] MEDS: Enoxaparin Sodium 40 MG/0.4 ML SYRINGE SC SCH ×2 (10:12→20:45)
[2021-11-27] MEDS: Dexamethasone 10 MG/ML VIAL SLOW IVP SCH ×2 (10:12→20:45)
[2021-11-27] MEDS: Pantoprazole 40 MG VIAL IVP SCH (10:13)
[2021-11-27] MEDS: Scopolamine 1.5 mg/72 hour Patch TD SCH (10:32)
[2021-11-27] MEDS: AA 4.25 %/CALCIUM/LYTES/D5W 2,000 ML IV SCH (15:17)
[2021-11-28] MEDS: Albuterol Sulfate 2.5 mg/3 ml Neb NEB SCH ×4 (00:14→18:57)
[2021-11-28] MEDS: Meropenem 1 GM in Sodium Chloride 0.9% 100 ML IVPB SCH ×3 (03:51→19:26)
[2021-11-28 04:49] LABS: Band 2 % (5-11); Hemoglobin 9.5 g/dL (12.0-16.0); Lymphocytes 1 % (21-51); MDiff Complete? YES; Mean Corpuscular HGB CONC 33.5 g/dL (32.0-36.0); Mean Corpuscular Hemoglobin 34.3 pg (27.0-31.0); Mean Platelet Volume 8.6 fL (7.4-10.4); Monocytes 4 % (0-10); Neutrophil 93 % (42-75); Platelet Count 166 thou/uL (130-400); Platelet Morphology Comment Appears Adequate; RBC Distribution Width 13.6 % (11.5-14.5); Red Blood Cell (RBC) Count 2.78 mill/uL (4.20-5.40); White Blood Cell (WBC) Count 10.4 thou/uL (4.8-10.8)
[2021-11-28 04:53] LABS: Anion Gap 12 mmol/L (10-20); BUN (Urea Nitrogen) 29 mg/dL (9.8-20.1); Calc. Creatinine Clearance 85 mL/min (70-130); Calcium 8.6 mg/dL (7.8-10.44); Carbon Dioxide 28 mmol/L (23-31); Chloride 104 mmol/L (98-107); Glucose 167 mg/dL (83-110); Potassium 3.9 mmol/L (3.5-5.1); Sodium 140 mmol/L (136-145)
[2021-11-28] MEDS: Enoxaparin Sodium 40 MG/0.4 ML SYRINGE SC SCH ×2 (08:35→19:40)
[2021-11-28] MEDS: Dexamethasone 10 MG/ML VIAL SLOW IVP SCH ×2 (08:35→19:40)
[2021-11-28] MEDS: Pantoprazole 40 MG VIAL IVP SCH (08:35)
[2021-11-28] MEDS: AA 4.25 %/CALCIUM/LYTES/D5W 2,000 ML IV SCH (18:15)
[2021-11-28] MEDS: Morphine 4 MG/ML VIAL SLOW IVP PRN (19:25)
[2021-11-29] MEDS: Albuterol Sulfate 2.5 mg/3 ml Neb NEB SCH ×4 (00:47→18:51)
[2021-11-29] MEDS: Meropenem 1 GM in Sodium Chloride 0.9% 100 ML IVPB SCH ×3 (04:00→20:43)
[2021-11-29] MEDS: Enoxaparin Sodium 40 MG/0.4 ML SYRINGE SC SCH ×2 (08:34→20:44)
[2021-11-29] MEDS: Dexamethasone 10 MG/ML VIAL SLOW IVP SCH ×2 (08:34→20:44)
[2021-11-29] MEDS: Pantoprazole 40 MG VIAL IVP SCH (08:34)
[2021-11-29 09:06] LABS: #Eosinphils 0.1 thou/uL (0.0-0.7); #Lymphocytes 0.2 thou/uL (1.20-3.40); #Monocytes 0.7 thou/uL (0.11-0.59); %Eosinophils 0.3 % (0.0-10.0); %Lymphocytes 1.6 % (21.0-51.0); %Monocytes 4.8 % (0.0-10.0); %Neutrophils 93.3 % (42.0-75.0); Hemoglobin 10.2 g/dL (12.0-16.0); Mean Corpuscular HGB CONC 35.1 g/dL (32.0-36.0); Mean Corpuscular Hemoglobin 35.9 pg (27.0-31.0); Mean Platelet Volume 8.8 fL (7.4-10.4); Platelet Count 173 thou/uL (130-400); Red Blood Cell (RBC) Count 2.85 mill/uL (4.20-5.40)
[2021-11-29 09:26] LABS: Anion Gap 11 mmol/L (10-20); BUN (Urea Nitrogen) 23 mg/dL (9.8-20.1); Calc. Creatinine Clearance 91 mL/min (70-130); Calcium 8.5 mg/dL (7.8-10.44); Carbon Dioxide 29 mmol/L (23-31); Chloride 105 mmol/L (98-107); Glucose 97 mg/dL (83-110); Potassium 4.2 mmol/L (3.5-5.1); Sodium 141 mmol/L (136-145)
[2021-11-29] MEDS: AA 4.25 %/CALCIUM/LYTES/D5W 2,000 ML IV SCH (17:55)
[2021-11-30] MEDS: Albuterol Sulfate 2.5 mg/3 ml Neb NEB SCH ×4 (01:24→19:54)
[2021-11-30 04:20] LABS: #Lymphocytes 0.1 thou/uL (1.20-3.40); #Monocytes 0.3 thou/uL (0.11-0.59); %Eosinophils 0.1 % (0.0-10.0); %Lymphocytes 0.9 % (21.0-51.0); %Monocytes 2.3 % (0.0-10.0); %Neutrophils 96.7 % (42.0-75.0); Hemoglobin 8.9 g/dL (12.0-16.0); Mean Corpuscular HGB CONC 33.6 g/dL (32.0-36.0); Mean Corpuscular Hemoglobin 34.8 pg (27.0-31.0); Mean Platelet Volume 8.6 fL (7.4-10.4); Platelet Count 134 thou/uL (130-400); RBC Distribution Width 14.1 % (11.5-14.5); Red Blood Cell (RBC) Count 2.55 mill/uL (4.20-5.40); White Blood Cell (WBC) Count 12.4 thou/uL (4.8-10.8)
[2021-11-30 04:42] LABS: Anion Gap 7 mmol/L (10-20); BUN (Urea Nitrogen) 24 mg/dL (9.8-20.1); Calc. Creatinine Clearance 95 mL/min (70-130); Calcium 8.2 mg/dL (7.8-10.44); Carbon Dioxide 28 mmol/L (23-31); Chloride 107 mmol/L (98-107); Glucose 163 mg/dL (83-110); Potassium 4.4 mmol/L (3.5-5.1); Sodium 138 mmol/L (136-145)
[2021-11-30] MEDS: Meropenem 1 GM in Sodium Chloride 0.9% 100 ML IVPB SCH ×2 (05:26→12:03)
[2021-11-30] MEDS: Scopolamine 1.5 mg/72 hour Patch TD SCH (08:53)
[2021-11-30] MEDS: Dexamethasone 10 MG/ML VIAL SLOW IVP SCH ×2 (08:53→20:59)
[2021-11-30] MEDS: Pantoprazole 40 MG VIAL IVP SCH (08:53)
[2021-11-30] MEDS: Enoxaparin Sodium 40 MG/0.4 ML SYRINGE SC SCH ×2 (08:53→20:59)
[2021-11-30] MEDS ORDERED: Metamucil PACK PO PRN (14:34)
[2021-11-30] MEDS ORDERED: Loperamide HCl 2 MG CAP PO PRN (15:39)
[2021-11-30] MEDS: Melatonin 3 MG TAB PO PRN (21:00)
[2021-12-01] MEDS: Albuterol Sulfate 2.5 mg/3 ml Neb NEB SCH ×4 (01:10→19:51)
[2021-12-01 04:38] LABS: Anion Gap 13 mmol/L (10-20); BUN (Urea Nitrogen) 23 mg/dL (9.8-20.1); Calc. Creatinine Clearance 0 mL/min (70-130); Calcium 8.9 mg/dL (7.8-10.44); Carbon Dioxide 28 mmol/L (23-31); Chloride 101 mmol/L (98-107); Glucose 142 mg/dL (83-110); Potassium 4.7 mmol/L (3.5-5.1); Sodium 137 mmol/L (136-145)
[2021-12-01 05:38] LABS: Band 11 % (5-11); Hemoglobin 10.3 g/dL (12.0-16.0); Lymphocytes 1 % (21-51); MDiff Complete? YES; Macrocytosis SLIGHT = 6-15 cells (100X) (0-5/hpf); Mean Corpuscular HGB CONC 33.3 g/dL (32.0-36.0); Mean Corpuscular Hemoglobin 35.2 pg (27.0-31.0); Mean Platelet Volume 8.9 fL (7.4-10.4); Neutrophil 88 % (42-75); Platelet Count 159 thou/uL (130-400); RBC Distribution Width 14.4 % (11.5-14.5); Red Blood Cell (RBC) Count 2.92 mill/uL (4.20-5.40); White Blood Cell (WBC) Count 13.5 thou/uL (4.8-10.8)
[2021-12-01] MEDS: Enoxaparin Sodium 40 MG/0.4 ML SYRINGE SC SCH ×2 (08:48→21:25)
[2021-12-01] MEDS: Dexamethasone 10 MG/ML VIAL SLOW IVP SCH ×2 (08:48→21:26)
[2021-12-01] MEDS: Pantoprazole 40 MG VIAL IVP SCH (08:48)
[2021-12-01] MEDS: Melatonin 3 MG TAB PO PRN (21:26)
[2021-12-02] MEDS: Albuterol Sulfate 2.5 mg/3 ml Neb NEB SCH ×5 (02:39→23:06)
[2021-12-02 05:39] LABS: Band 2 % (5-11); Hemoglobin 9.5 g/dL (12.0-16.0); Lymphocytes 1 % (21-51); MDiff Complete? YES; Macrocytosis SLIGHT = 6-15 cells (100X) (0-5/hpf); Mean Corpuscular HGB CONC 33.1 g/dL (32.0-36.0); Mean Corpuscular Hemoglobin 35.8 pg (27.0-31.0); Mean Platelet Volume 8.6 fL (7.4-10.4); Monocytes 1 % (0-10); Myelocyte 1 % (0-0); Neutrophil 95 % (42-75); Platelet Count 138 thou/uL (130-400); RBC Distribution Width 14.4 % (11.5-14.5); Red Blood Cell (RBC) Count 2.64 mill/uL (4.20-5.40); White Blood Cell (WBC) Count 15.1 thou/uL (4.8-10.8)
[2021-12-02 05:44] LABS: Anion Gap 10 mmol/L (10-20); BUN (Urea Nitrogen) 21 mg/dL (9.8-20.1); Calc. Creatinine Clearance 100 mL/min (70-130); Calcium 7.5 mg/dL (7.8-10.44); Carbon Dioxide 25 mmol/L (23-31); Chloride 109 mmol/L (98-107); Glucose 114 mg/dL (83-110); Potassium 3.9 mmol/L (3.5-5.1); Sodium 140 mmol/L (136-145)
[2021-12-02] MEDS: Pantoprazole 40 MG VIAL IVP SCH (08:02)
[2021-12-02] MEDS: Dexamethasone 10 MG/ML VIAL SLOW IVP SCH ×2 (08:02→21:09)
[2021-12-02] MEDS: Enoxaparin Sodium 40 MG/0.4 ML SYRINGE SC SCH ×2 (08:02→21:09)
[2021-12-02] MEDS: Morphine 4 MG/ML VIAL SLOW IVP PRN ×2 (09:39→16:11)
[2021-12-02] MEDS: Guaifenesin DM 100-10/5 ML UDCUP PO SCH (18:40)
[2021-12-02] MEDS: Melatonin 3 MG TAB PO PRN (21:10)
[2021-12-03 03:37] LABS: #Lymphocytes 0.2 thou/uL (1.20-3.40); #Monocytes 0.3 thou/uL (0.11-0.59); #Neutrophils 15.7 thou/uL (1.40-6.50); %Eosinophils 0.1 % (0.0-10.0); %Monocytes 1.8 % (0.0-10.0); %Neutrophils 97.1 % (42.0-75.0); Hemoglobin 11.6 g/dL (12.0-16.0); Mean Corpuscular HGB CONC 33.3 g/dL (32.0-36.0); Mean Corpuscular Hemoglobin 35.9 pg (27.0-31.0); Mean Platelet Volume 8.7 fL (7.4-10.4); Platelet Count 186 thou/uL (130-400); RBC Distribution Width 14.6 % (11.5-14.5); Red Blood Cell (RBC) Count 3.22 mill/uL (4.20-5.40); White Blood Cell (WBC) Count 16.1 thou/uL (4.8-10.8)
[2021-12-03 04:27] LABS: Anion Gap 8 mmol/L (10-20); BUN (Urea Nitrogen) 30 mg/dL (9.8-20.1); Calc. Creatinine Clearance 82 mL/min (70-130); Carbon Dioxide 33 mmol/L (23-31); Chloride 104 mmol/L (98-107); Glucose 141 mg/dL (83-110); Potassium 4.7 mmol/L (3.5-5.1); Sodium 140 mmol/L (136-145)
[2021-12-03] MEDS: Albuterol Sulfate 2.5 mg/3 ml Neb NEB SCH ×4 (07:24→22:24)
[2021-12-03] MEDS ORDERED: Simethicone Chewable 80 MG TAB PO PRN (07:36)
[2021-12-03] MEDS: Guaifenesin DM 100-10/5 ML UDCUP PO SCH ×3 (08:08→18:25)
[2021-12-03] MEDS: Dexamethasone 10 MG/ML VIAL SLOW IVP SCH ×2 (08:12→20:44)
[2021-12-03] MEDS: Scopolamine 1.5 mg/72 hour Patch TD SCH (08:12)
[2021-12-03] MEDS: Pantoprazole 40 MG VIAL IVP SCH (08:12)
[2021-12-03] MEDS: Enoxaparin Sodium 40 MG/0.4 ML SYRINGE SC SCH ×2 (08:13→20:40)
[2021-12-03] MEDS ORDERED: Metamucil PACK PO SCH (09:00)
[2021-12-03] MEDS: Morphine 4 MG/ML VIAL SLOW IVP PRN (11:12)
[2021-12-03 16:17] VITALS: BP 100/65
[2021-12-03] MEDS: Melatonin 3 MG TAB PO PRN (20:45)
[2021-12-04] MEDS: hydrOXYzine 25 MG TAB PO PRN ×2 (01:10→20:27)
[2021-12-04] MEDS: Guaifenesin DM 100-10/5 ML UDCUP PO SCH ×3 (05:40→18:41)
[2021-12-04 06:28] LABS: #Lymphocytes 0.2 thou/uL (1.20-3.40); #Monocytes 0.3 thou/uL (0.11-0.59); #Neutrophils 12.1 thou/uL (1.40-6.50); %Eosinophils 0.2 % (0.0-10.0); %Lymphocytes 1.2 % (21.0-51.0); %Monocytes 2.6 % (0.0-10.0); Hemoglobin 11.8 g/dL (12.0-16.0); Mean Corpuscular HGB CONC 32.9 g/dL (32.0-36.0); Mean Corpuscular Hemoglobin 35.4 pg (27.0-31.0); Mean Platelet Volume 8.6 fL (7.4-10.4); Platelet Count 209 thou/uL (130-400); RBC Distribution Width 14.6 % (11.5-14.5); Red Blood Cell (RBC) Count 3.34 mill/uL (4.20-5.40); White Blood Cell (WBC) Count 12.6 thou/uL (4.8-10.8)
[2021-12-04] MEDS: Dexamethasone 10 MG/ML VIAL SLOW IVP SCH (07:53)
[2021-12-04] MEDS: Enoxaparin Sodium 40 MG/0.4 ML SYRINGE SC SCH ×2 (07:53→20:27)
[2021-12-04] MEDS: Albuterol Sulfate 2.5 mg/3 ml Neb NEB SCH ×4 (08:21→23:38)
[2021-12-04] MEDS: Morphine 4 MG/ML VIAL SLOW IVP PRN (11:19)
[2021-12-04] MEDS: Melatonin 3 MG TAB PO PRN (20:27)
[2021-12-05 05:30] LABS: Anion Gap 9 mmol/L (10-20); BUN (Urea Nitrogen) 23 mg/dL (9.8-20.1); Calc. Creatinine Clearance 87 mL/min (70-130); Calcium 8.6 mg/dL (7.8-10.44); Carbon Dioxide 31 mmol/L (23-31); Chloride 103 mmol/L (98-107); Glucose 87 mg/dL (83-110); Potassium 3.8 mmol/L (3.5-5.1); Sodium 139 mmol/L (136-145)
[2021-12-05] MEDS: Guaifenesin DM 100-10/5 ML UDCUP PO SCH ×3 (06:03→19:40)
[2021-12-05] MEDS: Morphine 4 MG/ML VIAL SLOW IVP PRN ×3 (07:28→11:19)
[2021-12-05] MEDS: Albuterol Sulfate 2.5 mg/3 ml Neb NEB SCH ×4 (07:54→22:26)
[2021-12-05] MEDS: Enoxaparin Sodium 40 MG/0.4 ML SYRINGE SC SCH ×2 (08:29→23:24)
[2021-12-05] MEDS: Dexamethasone 10 MG/ML VIAL SLOW IVP SCH (08:29)
[2021-12-05] MEDS: Melatonin 3 MG TAB PO PRN (23:46)
[2021-12-06] MEDS: Guaifenesin DM 100-10/5 ML UDCUP PO SCH (02:00)
[2021-12-06] MEDS: hydrOXYzine 25 MG TAB PO PRN (02:42)
[2021-12-06 06:52] LABS: Hemoglobin 11.7 g/dL (12.0-16.0); Mean Corpuscular HGB CONC 32.9 g/dL (32.0-36.0); Mean Corpuscular Hemoglobin 35.2 pg (27.0-31.0); Mean Platelet Volume 8.4 fL (7.4-10.4); Platelet Count 168 thou/uL (130-400); RBC Distribution Width 14.5 % (11.5-14.5); Red Blood Cell (RBC) Count 3.33 mill/uL (4.20-5.40); White Blood Cell (WBC) Count 14.9 thou/uL (4.8-10.8)
[2021-12-06 07:26] LABS: Band 3 % (5-11); Lymphocytes 1 % (21-51); MDiff Complete? YES; Monocytes 2 % (0-10); Myelocyte 1 % (0-0); Neutrophil 93 % (42-75); Platelet Morphology Comment Appears Adequate; Polychromasia SLIGHT = 2-3 cells (100X) (0-2/hpf)
[2021-12-06] MEDS: Dexamethasone 10 MG/ML VIAL SLOW IVP SCH (07:46)
[2021-12-06] MEDS: Scopolamine 1.5 mg/72 hour Patch TD SCH (07:46)
[2021-12-06] MEDS: Morphine 4 MG/ML VIAL SLOW IVP PRN (07:46)
[2021-12-06] MEDS: Albuterol Sulfate 2.5 mg/3 ml Neb NEB SCH ×3 (07:46→18:48)
[2021-12-06] MEDS: Enoxaparin Sodium 40 MG/0.4 ML SYRINGE SC SCH ×2 (07:47→20:48)
[2021-12-06] MEDS ORDERED: Lorazepam 2 MG/ML VIAL SLOW IVP PRN (08:06)
[2021-12-07] MEDS: Albuterol Sulfate 2.5 mg/3 ml Neb NEB SCH ×4 (01:30→18:54)
[2021-12-07] MEDS: Enoxaparin Sodium 40 MG/0.4 ML SYRINGE SC SCH ×2 (08:33→20:01)
[2021-12-07] MEDS: Dexamethasone 10 MG/ML VIAL SLOW IVP SCH (08:33)
[2021-12-07] MEDS: Morphine 4 MG/ML VIAL SLOW IVP PRN ×7 (10:05→22:14)
[2021-12-07] MEDS: Melatonin 3 MG TAB PO PRN (20:05)
[2021-12-08] MEDS: Albuterol Sulfate 2.5 mg/3 ml Neb NEB SCH ×2 (00:51→08:15)
[2021-12-08] MEDS: Morphine 4 MG/ML VIAL SLOW IVP PRN ×5 (02:52→12:08)
[2021-12-08 03:36] VITALS: TEMP 97.5
[2021-12-08] MEDS: Enoxaparin Sodium 40 MG/0.4 ML SYRINGE SC SCH (08:48)
[2021-12-08] MEDS: Dexamethasone 10 MG/ML VIAL SLOW IVP SCH (08:49)
[2021-12-08 12:12] VITALS: BMI 22.5
== END 2021-12-08 12:14 | disposition hospice, inpatient (51) | DRG 871 ==
LOC: ERS 15:48 → 2NO 18:06 → CCU 11-21 22:38 → IMCU/EMU 11-26 09:41
PROVIDERS: ADMIT Student in an Organized Health Care Education/Training Program; ATTEND Student in an Organized Health Care Education/Training Program
PROC: 8E0ZXY6 Isolation (ICD-10-PCS; principal; 2021-11-14)
PROC: 5A09557 Assistance with Respiratory Ventilation, Greater than 96 Consecutive Hours, Continuous Positive Airway Pressure (ICD-10-PCS; 2021-11-21)
DX: A41.89 Other specified sepsis (principal); U07.1 COVID-19; J12.82 Pneumonia due to coronavirus disease 2019; J96.01 Acute respiratory failure with hypoxia; J15.9 Unspecified bacterial pneumonia; N39.0 Urinary tract infection, site not specified; E44.0 Moderate protein-calorie malnutrition; I47.1 Supraventricular tachycardia; G72.81 Critical illness myopathy; F05 Delirium due to known physiological condition; Z66 Do not resuscitate; Z51.5 Encounter for palliative care; I10 Essential (primary) hypertension; E78.5 Hyperlipidemia, unspecified; F41.9 Anxiety disorder, unspecified; G47.00 Insomnia, unspecified; D64.9 Anemia, unspecified; E87.6 Hypokalemia; R19.7 Diarrhea, unspecified; T38.0X5A Adverse effect of glucocorticoids and synthetic analogues, initial encounter; Z85.72 Personal history of non-Hodgkin lymphomas; Z79.82 Long term (current) use of aspirin; Z79.899 Other long term (current) drug therapy; Z68.22 Body mass index [BMI] 22.0-22.9, adult; Z85.828 Personal history of other malignant neoplasm of skin
CPT/HCPCS: 0240U; 36415; 36600; 71045; 71046; 71275; 80048; 80053; 80202; 81003; 82607; 82746; 82805; 83605; 83735; 83880; 84145; 84443; 84484; 85025; 86140; 87040; 87086; 87324; 87449; 93005; 93010; 94640; 94660; 96365; 96375; C9113; J0456; J0696; J1100; J1642; J1650; J1940; J2060; J2185; J2270; J3370; J3490; J7050; J7120; J7611; Q0162

== ENCOUNTER 2021-12-08 13:01 | Inpatient (IN) | payer OTHER ==
[2021-12-08 13:09] VITALS: BMI 23.0
[2021-12-08 13:10] VITALS: BP 91/57
[2021-12-08] MEDS ORDERED: Hyoscyamine Sulfate SL 0.125 mg Tablet SL PRN (13:15)
[2021-12-08] MEDS ORDERED: Scopolamine 1.5 mg/72 hour Patch TOP PRN (13:15)
[2021-12-08] MEDS ORDERED: Acetaminophen 650 MG Suppository PR PRN (13:15)
[2021-12-08] MEDS ORDERED: Ondansetron PF 4 MG/2 ML Vial IVP PRN (13:15)
[2021-12-08] MEDS ORDERED: Promethazine HCl 25 MG SUPP PR PRN (13:15)
[2021-12-08] MEDS ORDERED: Haloperidol Lactate 5 MG/ML VIAL SLOW IVP PRN (13:15)
[2021-12-08] MEDS ORDERED: diphenhydrAMINE 50 MG/ML VIAL IVP PRN (13:15)
[2021-12-08] MEDS ORDERED: Morphine 10 MG/0.5 ML ORAL SYRINGE SL PRN (13:15)
[2021-12-08] MEDS: Morphine 4 MG/ML VIAL SLOW IVP PRN ×6 (16:54→22:27)
[2021-12-08 23:49] VITALS: TEMP 0
[2021-12-09] MEDS: Morphine 4 MG/ML VIAL SLOW IVP PRN (00:28)
== END 2021-12-09 02:27 | disposition expired | DRG 951 ==
LOC: IMCU/EMU 13:01
PROVIDERS: ADMIT Family Medicine; ATTEND Family Medicine
DX: Z51.5 Encounter for palliative care (principal); U07.1 COVID-19; J12.82 Pneumonia due to coronavirus disease 2019; J96.01 Acute respiratory failure with hypoxia; A41.89 Other specified sepsis; J15.9 Unspecified bacterial pneumonia; G72.81 Critical illness myopathy; D53.9 Nutritional anemia, unspecified; R74.01 Elevation of levels of liver transaminase levels; Z85.72 Personal history of non-Hodgkin lymphomas
CPT/HCPCS: J1630; J2270